=== PATIENT | male | born 1945 | race African-American/Black ===

== ENCOUNTER 2018-12-28 14:46 | Inpatient (IN) | payer MEDICARE ==
[2018-12-28 15:58] LABS: #Eosinphils 0.2 thou/uL (0.0-0.7); #Lymphocytes 1.1 thou/uL (1.20-3.40); #Monocytes 0.5 thou/uL (0.11-0.59); #Neutrophils 2.8 thou/uL (1.40-6.50); %Basophils 0.4 % (0.0-1.0); %Eosinophils 3.4 % (0.0-10.0); %Lymphocytes 23.5 % (21.0-51.0); %Monocytes 10.6 % (0.0-10.0); %Neutrophils 62.2 % (42.0-75.0); Mean Corpuscular HGB CONC 32.9 g/dL (32.0-36.0); Mean Corpuscular Hemoglobin 30.5 pg (27.0-31.0); Mean Corpuscular Volume 92.6 fL (78.0-98.0); Mean Platelet Volume 8.7 fL (7.4-10.4); Platelet Count 141 thou/uL (130-400); RBC Distribution Width 14.3 % (11.5-14.5); Red Blood Cell (RBC) Count 4.59 mill/uL (4.70-6.10); White Blood Cell (WBC) Count 4.6 thou/uL (4.8-10.8)
[2018-12-28 16:19] LABS: ALT (SGPT) 17 U/L (8-55); AST (SGOT) 21 U/L (5-34); Albumin 3.6 g/dL (3.4-4.8); Alkaline Phosphatase 87 U/L (40-150); Anion Gap 10 mmol/L (10-20); BUN (Urea Nitrogen) 17 mg/dL (8.4-25.7); Calc. Creatinine Clearance 0 mL/min (70-130); Calcium 8.8 mg/dL (7.8-10.44); Carbon Dioxide 27 mmol/L (23-31); Chloride 108 mmol/L (98-107); Estimated GFR-MDRD 46; Globulin 2.6 g/dL (2.4-3.5); Glucose 99 mg/dL (83-110); Potassium 4.1 mmol/L (3.5-5.1); Protein, Total 6.2 g/dL (5.8-8.1); Sodium 141 mmol/L (136-145)
[2018-12-28 20:54] LABS: Troponin I 0.118 ng/mL (< 0.028)
[2018-12-28] MEDS ORDERED: Warfarin Sodium 2.5 MG TAB PO SCH (21:00)
[2018-12-28] MEDS: Atorvastatin Calcium 20 MG TAB PO SCH (21:30)
[2018-12-28] MEDS: hydrALAZINE 25 MG TAB PO SCH (21:30)
[2018-12-28 21:56] VITALS: BMI 23.4
--- NOTE | 2018-12-29 01:56 | HP ---
CHIEF COMPLAINT: Shortness of breath. HISTORY OF PRESENT ILLNESS: This patient is a 73-year-old male who originally presented to the emergency department in [place] with shortness of breath and dyspnea on exertion. The patient reports that he has a chronic cough for years. It is generally productive of some non-discolored sputum, but over the last couple of weeks he has had increasing worsening dyspnea on exertion and some fullness in his chest. He has chronic lower extremity edema which is also become worse of late. He denies any specific chest pains. He does follow with Dr. Choudhary. Dr. Choudhary does do echocardiograms on him and told him that everything was okay. He tried to call his office on Wednesday, was unable to reach him by today, so he presented to the emergency department. In the emergency department in [place], the patient was felt to be in some degree of heart failure and was given Lasix 20 mg IV as well as topical nitroglycerin. The patient does not feel like he has voided substantially more than he typically does, but he is feeling better at present. PAST MEDICAL HISTORY: Notable for prosthetic aortic and mitral valves replaced in 2000 and he has done well since then, been quite stable. He has hyperlipidemia , and some degree of congestive heart failure. FAMILY HISTORY: Mother had coronary disease in her 80s. SOCIAL HISTORY: The patient is . Nonsmoker, nondrinker, nondrug user. CURRENT MEDICATIONS: 1. Atorvastatin 20 mg at bedtime. 2. Coreg 3.125 b.i.d. 3. Isosorbide 30 mg daily. 4. Hydralazine 25 b.i.d. 5. Dipyridamole 50 mg daily. 6. Warfarin 7.5 mg daily. ALLERGIES: SULFA. PHYSICAL EXAMINATION: VITAL SIGNS: Temperature 97, respirations 20, O2 saturation 95% on room air, BP 182/91. GENERAL APPEARANCE: Age-appropriate male, in no distress. He is awake, alert, oriented, pleasant, and cooperative. HEENT: Arcus senilis. No acute lesions. NECK: Supple and symmetric. HEART: Regular rate and rhythm. LUNGS: Clear to auscultation bilaterally with good chest wall expansion and air exchange. ABDOMEN: Soft, nontender, and nondistended. Positive bowel sounds. No masses. No organomegaly. EXTREMITIES: Have 2+ pitting edema both lower extremities in mid calf down and feet. SKIN: Vitiligo. No other acute lesions. NEUROLOGICAL: Intact with no focal deficits. LABORATORY DATA: White count 4.6, hemoglobin 14.0, platelets 141. Sodium 141, potassium 4.1, chloride 108, CO2 of 27, BUN 17, creatinine 1.79, glucose 99. AST 21, ALT 17. Troponin 0.103 and 0.103. BNP 1282. Albumin 3.6. Chest x-ray shows stable cardiomegaly with mild vascular congestion. IMPRESSION AND PLAN: 1. Decompensated systolic congestive heart failure. The patient's true cardiac status is not fully known other than he has a prosthetic valves, may have the diastolic component as well. We will attempt to get records from Dr. Choudhary's office first thing in the morning. In the meantime, continue with diuresis, beta blockers, nitrates. 2. Prosthetic valve. Continue with the beta ana and the warfarin. Job ID: [id number] MTDD
[2018-12-29] MEDS: Furosemide 40 MG/4 ML VIAL SLOW IVP SCH ×2 (03:48→13:35)
[2018-12-29] MEDS ORDERED: Nitroglycerin 2% Ointment 1 INCH/1 GM Packet TOP SCH (04:00)
[2018-12-29 05:49] LABS: Anion Gap 14 mmol/L (10-20); BUN (Urea Nitrogen) 16 mg/dL (8.4-25.7); Calc. Creatinine Clearance 45 mL/min (70-130); Carbon Dioxide 21 mmol/L (23-31); Chloride 106 mmol/L (98-107); Estimated GFR-MDRD 55; Glucose 83 mg/dL (83-110); Potassium 3.8 mmol/L (3.5-5.1); Sodium 137 mmol/L (136-145)
[2018-12-29] MEDS: Carvedilol 3.125 MG TAB PO SCH ×2 (09:20→16:25)
[2018-12-29] MEDS: hydrALAZINE 25 MG TAB PO SCH ×2 (09:20→20:37)
[2018-12-29] MEDS ORDERED: Spironolactone 25 MG TAB PO SCH (11:30)
[2018-12-29] MEDS: Nitroglycerin 2% Ointment 1 INCH/1 GM Packet TOP SCH ×2 (13:36→22:05)
[2018-12-29] MEDS ORDERED: Warfarin Sodium 3.75 MG HALF.TAB PO SCH (17:00)
[2018-12-29] MEDS: Atorvastatin Calcium 20 MG TAB PO SCH (20:37)
[2018-12-29] MEDS: Sacubitril 24.5 MG/Valsartan 25.5 MG TABLET PO SCH (20:37)
--- NOTE | 2018-12-30 01:18 | PRG ---
DATE OF SERVICE: 12/29/2018 This is Tati Vines PA-C dictating a report for AUBREY PINO. SUBJECTIVE: Mr. 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 The patient has been admitted with acute CHF exacerbation. He states this morning that he continues to feel fairly short of breath, however, does state that his edema is improving. He remains orthopneic. He denies any chest pain at this time. He denies any nausea, vomiting, chills or fevers. OBJECTIVE: VITAL SIGNS: Blood pressure 124/70, pulse is 75, O2 saturation is 97% on room air, and respirations are 20. GENERAL: The patient is a thin male, resting in bed, in no acute distress, conversing easily. HEENT: Head is atraumatic and normocephalic. Mucous membranes are moist. NECK: Supple. No lymphadenopathy. No obvious JVD. CV: S1, S2, positive mechanical click, regular rate and rhythm. LUNGS: Regular respiratory rate and pattern. The patient has poor vesicular breath sounds throughout and positive crackles at both bases. ABDOMEN: Positive bowel sounds. Soft, nontender. EXTREMITIES: +2 edema bilaterally. SKIN: Warm and dry. No rashes. NEUROLOGIC: Cranial nerves 2 through 12 intact. The patient is nonfocal. LABORATORY DATA: White blood cell count 4.6, hemoglobin 14.0, hematocrit 42.5, and platelets are 141. Sodium 137, potassium 3.8, BUN 16, creatinine 1.53. AST, ALT, and alkaline phosphatase are all within normal limits. BNP was 1200 on arrival. ASSESSMENT: 1. Acute on chronic systolic congestive heart failure exacerbation. 2. Valvular cardiomyopathy with last estimated ejection fraction of 40-45% per echo performed August of 2018. 3. Status post mechanical aortic and mitral valve replacements, on chronic anticoagulation with Coumadin. 4. Paroxysmal atrial fibrillation. 5. The patient with cardiac pacemaker. 6. Acute on chronic renal insufficiency, improving. 7. Hypertension. 8. Hyperlipidemia. 9. History of tobacco abuse and chronic obstructive pulmonary disease. PLAN: At this point, we will restart the patient's home dose of Entresto. We will continue IV diuresis and I will add spironolactone 25 mg daily. We will recheck an INR in the morning, and follow his electrolytes and renal function closely. The patient does need additional IV diuresis, he remains dyspneic and edematous at this time. The care of this patient has been discussed with Dr. Pino who agrees with the above. Job ID: [id number]
[2018-12-30 05:22] LABS: INR-International Normal Ratio 1.8; Prothrombin Time 21.1 SEC (12.0-14.7)
[2018-12-30 05:59] LABS: Anion Gap 13 mmol/L (10-20); BUN (Urea Nitrogen) 17 mg/dL (8.4-25.7); Calc. Creatinine Clearance 38 mL/min (70-130); Calcium 8.9 mg/dL (7.8-10.44); Carbon Dioxide 22 mmol/L (23-31); Chloride 106 mmol/L (98-107); Estimated GFR-MDRD 48; Glucose 90 mg/dL (83-110); Potassium 4.1 mmol/L (3.5-5.1); Sodium 137 mmol/L (136-145)
[2018-12-30] MEDS: Furosemide 40 MG/4 ML VIAL SLOW IVP SCH ×2 (06:30→14:02)
[2018-12-30] MEDS: Carvedilol 3.125 MG TAB PO SCH (06:54)
[2018-12-30] MEDS: Sacubitril 24.5 MG/Valsartan 25.5 MG TABLET PO SCH ×2 (09:51→20:20)
[2018-12-30] MEDS: hydrALAZINE 25 MG TAB PO SCH ×2 (09:51→20:20)
[2018-12-30] MEDS: Spironolactone 25 MG TAB PO SCH (09:51)
[2018-12-30] MEDS: Enoxaparin Sodium 60 MG/0.6 ML SYRINGE SC SCH ×2 (09:52→20:21)
[2018-12-30] MEDS ORDERED: Carvedilol 3.125 MG TAB PO SCH (11:30)
--- NOTE | 2018-12-30 14:43 | PRG ---
DATE OF SERVICE: 12/30/2018 SUBJECTIVE: Mr. Beckett is a very pleasant male with past medical history significant for valvular cardiomyopathy, status post both mechanical aortic and mitral valve replacements, paroxysmal atrial fibrillation, and chronic kidney disease, who presented to the hospital with a 2-week history of worsening shortness of breath and edema. The patient has been admitted with acute on chronic CHF exacerbation. The patient states that his breathing is continuing to improve. He does some have some occasional chest tightness related to his shortness of breath, but this has improved as well. His edema is beginning to improve. Overnight, the patient went from sinus rhythm into sustained atrial fibrillation with some intermittent rapid ventricular rate. He does appear to be asymptomatic from this. OBJECTIVE: VITAL SIGNS: Blood pressure 144/81, pulse 73, O2 saturation is 97% on room air, respirations are 16. The patient is afebrile, 97.5. GENERAL: The patient is a thin male, resting comfortably in bed, eating lunch, in no acute distress. HEENT: Head is atraumatic and normocephalic. Mucous membranes are moist. NECK: Supple. No lymphadenopathy. No obvious JVD. CV: S1 and S2, irregularly irregular. Positive click. LUNGS: Regular respiratory rate and pattern, he does have continued bibasilar crackles, although I do appreciate better air movement throughout. ABDOMEN: Positive bowel sounds. Soft, nontender. EXTREMITIES: 1+ edema bilaterally. NEUROLOGIC: Cranial nerves 2 through 12 are grossly intact. Nonfocal. LABORATORY DATA: PT 21.1, INR 1.8. Sodium 137, potassium 4.1, chloride 106, anion gap 13, creatinine 1.72, GFR 48, glucose 90, magnesium 1.7. ASSESSMENT: 1. Acute on chronic systolic congestive heart failure exacerbation, improving. 2. History of paroxysmal atrial fibrillation, now sustained, rate is currently controlled, CHADS-VASc 5, valvular cardiomyopathy with last ejection fraction estimated at 40% to 45%, which was August 2018. 3. Status post mechanical aortic and mitral valve replacements, on chronic anticoagulation with Coumadin, goal INR 2.5-3.5 4. The patient with dual chamber [employer] pacemaker. 5. Acute on chronic renal insufficiency, stable. 6. Hypertension. 7. Hyperlipidemia. 8. History of tobacco abuse and COPD. PLAN: We will titrate up the patient's carvedilol to 6.25 mg b.i.d. We will cover his subtherapeutic INR with Lovenox. Appropriate dosing has been discussed with Pharmacy and we will initiate therapy with 70 mg subcu b.i.d. We will continue IV diuresis and obtain 2D echocardiogram. Given the patient's flip into sustained atrial fibrillation along with his continued requirement for IV diuresis and his multiple comorbidities, he does meet inpatient criteria at this time. The care of this patient has been discussed in detail with Dr. Calloway, who agrees with the above. Job ID: [id number] MTDD
[2018-12-30] MEDS ORDERED: Warfarin Sodium 2.5 MG TAB PO SCH ×2 (17:00)
[2018-12-30] MEDS: Warfarin Sodium 7.5 MG TAB PO SCH ×2 (17:04→17:12)
[2018-12-30] MEDS: Carvedilol 6.25 MG TAB PO SCH (17:04)
[2018-12-30] MEDS: Warfarin Sodium 5 MG TAB PO SCH (17:17)
[2018-12-30] MEDS: Atorvastatin Calcium 20 MG TAB PO SCH (20:20)
[2018-12-31 04:56] LABS: INR-International Normal Ratio 1.9; Prothrombin Time 21.5 SEC (12.0-14.7)
[2018-12-31] MEDS: Furosemide 40 MG/4 ML VIAL SLOW IVP SCH ×2 (05:42→13:27)
[2018-12-31] MEDS: Spironolactone 25 MG TAB PO SCH (07:41)
[2018-12-31] MEDS: Carvedilol 6.25 MG TAB PO SCH ×2 (07:41→16:03)
[2018-12-31] MEDS: Sacubitril 24.5 MG/Valsartan 25.5 MG TABLET PO SCH ×2 (08:23→20:54)
[2018-12-31] MEDS: hydrALAZINE 25 MG TAB PO SCH ×2 (08:23→20:55)
[2018-12-31] MEDS: Enoxaparin Sodium 60 MG/0.6 ML SYRINGE SC SCH (08:24)
[2018-12-31] MEDS ORDERED: Diabetic Tussin 200 MG/10 ML UDCUP PO PRN (08:55)
--- NOTE | 2018-12-31 13:35 | EKG ---
Test Reason : STAT Blood Pressure : / mmHG Vent. Rate : 077 BPM Atrial Rate : 375 BPM P-R Int : 000 ms QRS Dur : 160 ms QT Int : 424 ms P-R-T Axes : 000 -29 105 degrees QTc Int : 479 ms Demand pacemaker; interpretation is based on intrinsic rhythm Atrial fibrillation with premature ventricular or aberrantly conducted complexes Left bundle branch block Abnormal ECG When compared with ECG of 28-DEC-2018 14:55, (Unconfirmed) Atrial fibrillation has replaced Sinus rhythm Confirmed by DR. Misty NEAL ([id number]) on 12/31/2018 1:35:21 PM Referred By: MARE Confirmed By:DR. Misty NEAL
--- NOTE | 2018-12-31 13:53 | EKG ---
Test Reason : Blood Pressure : / mmHG Vent. Rate : 086 BPM Atrial Rate : 153 BPM P-R Int : 000 ms QRS Dur : 152 ms QT Int : 422 ms P-R-T Axes : 000 035 129 degrees QTc Int : 504 ms Atrial fibrillation Left bundle branch block Abnormal ECG Confirmed by DR. Misty NEAL ([id number]) on 12/31/2018 1:52:44 PM Referred By: MARE Confirmed By:DR. Misty NEAL
--- NOTE | 2018-12-31 14:51 | PDOC.PN ---
- Subjective Encounter Start Date: 12/31/18 Encounter Start Time: 08:30 Patient seen and examined for CHF. SOB improving. No CP. No new complaints. No overnight events - Objective MAR Reviewed: Yes Vital Signs & Weight: Vital Signs (12 hours) Temp Pulse Resp BP Pulse Ox 12/31/18 11:34 97.8 F 73 18 137/82 98 12/31/18 07:36 97.6 F 77 18 166/84 H 97 12/31/18 03:05 97.8 F 73 18 162/89 H 98 Weight Weight 153 lb 7.068 oz I&O: 12/30/18 12/31/18 01/01/19 06:59 06:59 06:59 Intake Total 1598 1444 Output Total 2360 2175 Balance -237 -131 Result Diagrams: 12/28/18 15:44 12/30/18 04:45 EKG Reviewed by me: Yes (Tele paced) Phys Exam - Physical Examination Constitutional: NAD Respiratory: no wheezing, no rhonchi Cardiovascular: RRR, no rub Gastrointestinal: soft, non-tender, positive bowel sounds Musculoskeletal: no edema Neurological: moves all 4 limbs Dx/Plan - Plan IMPRESSION: Acute on chronic systolic/diastolic HF Prosthetic Mitral and Aortic valve HTN with HTN heart disease HLD Subtherapeutic INR Par Afib CKD 3 PLAN: DC Lovenox when INR >=2.5 Change Lasix to PO Cont Coreg/Entresto/Aldactone AM labs Cont other meds as below Review of Systems - Review of Systems Respiratory: negative: Cough, Dry, Shortness of Breath, Hemoptysis, SOB with Excertion, Pleuritic Pain, Sputum, Wheezing Cardiovascular: negative: chest pain, palpitations, orthopnea, paroxysmal nocturnal dyspnea, edema, light headedness, other - Medications/Allergies Allergies/Adverse Reactions: Allergies Allergy/AdvReac Type Severity Reaction Status Date / Time Sulfa (Sulfonamide Allergy Verified 12/28/18 22:43 Antibiotics) Medications: Current Medications Atorvastatin Calcium (Lipitor) 20 mg PO HS REPLACED BY [facility] Last Admin: 12/30/18 20:20 Dose: 20 mg Carvedilol (Coreg) 6.25 mg PO BID-[facility] Last Admin: 12/31/18 07:41 Dose: 6.25 mg Enoxaparin Sodium (Lovenox) 70 mg SC 0900,2100 REPLACED BY [facility] Last Admin: 12/31/18 08:24 Dose: 70 mg Furosemide (Lasix) 40 mg SLOW IVP 0600,1400 REPLACED BY [facility] Last Admin: 12/31/18 13:27 Dose: 40 mg Guaifenesin (Robitussin Sf) 200 mg PO Q4H PRN PRN Reason: Cough Hydralazine HCl (Apresoline) 25 mg PO BID REPLACED BY [facility] Last Admin: 12/31/18 08:23 Dose: 25 mg Isosorbide Mononitrate (Imdur Er) 30 mg PO DAILY REPLACED BY [facility] Last Admin: 12/31/18 08:23 Dose: 30 mg Miscellaneous Medication (Pharmacy To Dose) 0 each PO .WARFARIN PRN PRN Reason: LABS Sacubitril/Valsartan (Entresto 24.5 Mg-25.5 Mg Tablet) 1 tab PO BID REPLACED BY [facility] Last Admin: 12/31/18 08:23 Dose: 1 tab Spironolactone (Aldactone) 25 mg PO QAM-WM REPLACED BY [facility] Last Admin: 12/31/18 07:41 Dose: 25 mg Warfarin Sodium (Coumadin) 5 mg PO 1700 REPLACED BY [facility] Last Admin: 12/30/18 17:17 Dose: 5 mg
[2018-12-31] MEDS: Warfarin Sodium 5 MG TAB PO SCH (16:02)
[2018-12-31] MEDS: Enoxaparin Sodium 80 MG/0.8 ML SYRINGE SC SCH (20:55)
[2018-12-31] MEDS: Atorvastatin Calcium 20 MG TAB PO SCH (20:55)
[2019-01-01 05:15] LABS: Hemoglobin 14.4 g/dL (14.0-18.0); Platelet Count 139 thou/uL (130-400)
[2019-01-01 05:30] LABS: Anion Gap 12 mmol/L (10-20); BUN (Urea Nitrogen) 17 mg/dL (8.4-25.7); Calc. Creatinine Clearance 37 mL/min (70-130); Calcium 8.8 mg/dL (7.8-10.44); Carbon Dioxide 24 mmol/L (23-31); Chloride 105 mmol/L (98-107); Estimated GFR-MDRD 45; Glucose 88 mg/dL (83-110); Potassium 4.1 mmol/L (3.5-5.1); Sodium 137 mmol/L (136-145)
[2019-01-01] MEDS: Spironolactone 25 MG TAB PO SCH (08:09)
[2019-01-01] MEDS: Furosemide 40 MG TAB PO SCH (08:09)
[2019-01-01] MEDS: hydrALAZINE 25 MG TAB PO SCH ×2 (08:09→21:57)
[2019-01-01] MEDS: Carvedilol 6.25 MG TAB PO SCH ×2 (08:09→16:19)
[2019-01-01] MEDS: Enoxaparin Sodium 80 MG/0.8 ML SYRINGE SC SCH ×2 (08:09→21:57)
[2019-01-01] MEDS: Sacubitril 24.5 MG/Valsartan 25.5 MG TABLET PO SCH ×2 (08:09→21:58)
--- NOTE | 2019-01-01 13:25 | PDOC.PN ---
- Subjective Encounter Start Date: 01/01/19 Encounter Start Time: 07:00 Pt seen for followup re: CHF exacerbation. Feels better. No complaints. - Objective MAR Reviewed: Yes Vital Signs & Weight: Vital Signs (12 hours) Temp Pulse Resp BP Pulse Ox 01/01/19 11:30 98.2 F 72 18 123/76 97 01/01/19 08:07 98.1 F 72 18 120/79 98 01/01/19 04:00 97.5 F L 85 15 159/95 H 99 Weight Weight 151 lb 10.848 oz I&O: 12/31/18 01/01/19 01/02/19 06:59 06:59 06:59 Intake Total 1444 0 Output Total 2175 1730 Balance -731 -7381 Result Diagrams: 01/01/19 04:13 01/01/19 04:13 EKG Reviewed by me: Yes (Tele: runs of NSVT) Phys Exam - Physical Examination Constitutional: NAD HEENT: moist MMs Neck: supple Respiratory: clear to auscultation bilateral Cardiovascular: RRR Gastrointestinal: soft Neurological: moves all 4 limbs Psychiatric: normal affect Deviation from normal: vitiligo dorsum left hand Dx/Plan (1) Acute on chronic combined systolic and diastolic CHF, NYHA class 3 Code(s): I50.43 - ACUTE ON CHRONIC COMBINED SYSTOLIC AND DIASTOLIC HRT FAIL Status: Acute Comment: Improving, continue diuretics (2) H/O prosthetic heart valve Status: Chronic Comment: INR subtherapeutic, target INR 2.5-3.5. Continue warfarin with Lovenox bridge. (3) HTN (hypertension) Code(s): I10 - ESSENTIAL (PRIMARY) HYPERTENSION Status: Chronic Comment: controlled (4) Dyslipidemia Code(s): E78.5 - HYPERLIPIDEMIA, UNSPECIFIED Status: Chronic Comment: continue Lipitor (5) Stage 3 chronic kidney disease Code(s): N18.3 - CHRONIC KIDNEY DISEASE, STAGE 3 (MODERATE) Status: Chronic Comment: stable - Plan * . Review of Systems - Review of Systems Respiratory: negative: Cough, Shortness of Breath, SOB with Excertion, Pleuritic Pain, Wheezing Cardiovascular: negative: chest pain, palpitations, orthopnea, paroxysmal nocturnal dyspnea, edema, light headedness - Medications/Allergies Allergies/Adverse Reactions: Allergies Allergy/AdvReac Type Severity Reaction Status Date / Time Sulfa (Sulfonamide Allergy Verified 12/28/18 22:43 Antibiotics) Medications: Current Medications Atorvastatin Calcium (Lipitor) 20 mg PO HS [facility] Last Admin: 12/31/18 20:55 Dose: 20 mg Carvedilol (Coreg) 6.25 mg PO BID-[facility] Last Admin: 01/01/19 08:09 Dose: 6.25 mg Enoxaparin Sodium (Lovenox) 70 mg SC 0900,2100 [facility] Last Admin: 01/01/19 08:09 Dose: 70 mg Furosemide (Lasix) 40 mg PO DAILY-[facility] Last Admin: 01/01/19 08:09 Dose: 40 mg Guaifenesin (Robitussin Sf) 200 mg PO Q4H PRN PRN Reason: Cough Last Admin: 12/31/18 15:54 Dose: 200 mg Hydralazine HCl (Apresoline) 25 mg PO BID [facility] Last Admin: 01/01/19 08:09 Dose: 25 mg Isosorbide Mononitrate (Imdur Er) 30 mg PO DAILY [facility] Last Admin: 01/01/19 08:09 Dose: 30 mg Miscellaneous Medication (Pharmacy To Dose) 0 each PO .WARFARIN PRN PRN Reason: LABS Sacubitril/Valsartan (Entresto 24.5 Mg-25.5 Mg Tablet) 1 tab PO BID [facility] Last Admin: 01/01/19 08:09 Dose: 1 tab Spironolactone (Aldactone) 25 mg PO QAM-[facility] Last Admin: 01/01/19 08:09 Dose: 25 mg Warfarin Sodium (Coumadin) 5 mg PO 1700 [facility] Last Admin: 12/31/18 16:02 Dose: 5 mg
[2019-01-01] MEDS ORDERED: Warfarin Sodium 3 MG TAB PO SCH (17:00)
--- NOTE | 2019-01-01 18:11 | CON ---
DATE OF CONSULTATION: 01/01/2019 PRIMARY GEOGRAPHICAL HISTORIAN: Dr. Popeye Choudhary. REASON FOR CONSULTATION: Atrial arrhythmias in the setting of congestive heart failure. HISTORY OF PRESENT ILLNESS: Mr. Beckett is a delightful 73-year-old man. He was admitted to the hospital with congestive heart failure on this occasion, which is diastolic. During this hospitalization, he has had atrial fibrillation and also what appears to be some atrial tachycardia with a rapid ventricular response. Heart failure is improved, but the atrial arrhythmias have not and the rate is very rapid at times. Previous aortic and mitral valves replacement by mechanical valves. Previous pacemaker insertion. CURRENT MEDICATION: He is on; 1. Entresto. 2. Coreg. 3. Hydralazine. 4. Spironolactone. 5. Coumadin. ALLERGIES: TO SULFA. REVIEW OF SYSTEMS: CONSTITUTIONAL: No significant weight gain or loss. Vision: No changes. HEARING: No changes. PULMONARY: No cough or wheezing. GASTROINTESTINAL: No nausea, vomiting, or diarrhea. SKIN: No rashes. NEUROLOGIC: No unilateral weakness or numbness. PSYCHIATRIC: No unusual depression or anxiety. HEMATOLOGIC: No unusual bruising. GENITOURINARY: No burning with urination. PHYSICAL EXAMINATION: GENERAL: This is a pleasant gentleman, in no distress blood pressure 137/76, pulse 70s, it is irregular. NECK: Neck veins are normal. LUNGS: Showed some rhonchi. CARDIAC: It is irregular. There are crisp prosthetic valve sounds. ABDOMEN: Soft and nontender. EXTREMITIES: Warm and dry. No clubbing or cyanosis. There is no edema. PERTINENT LABORATORY DATA: Creatinine is 1.82. Troponin 0.188. BNP is 1282. Echocardiogram revealed mildly depressed left ventricular function, ejection fraction 40% to 45%, moderate to severe concentric left ventricular hypertrophy, and normally functioning mechanical and aortic valve prosthesis. ASSESSMENT: 1. Congestive heart failure, systolic diastolic mixed. 2. Atrial arrhythmias with frequent atrial fibrillation and somewhat appears to be atrial tachycardia with rapid conduction rate of 150. 3. Previous valve replacement. PLAN: 1. Really, the only antiarrhythmic that could be used at this point would be amiodarone. 2. We will consult electrophysiology at some point, consideration for ablation. If he does have some rhonchi, may not be a great candidate for long-term amiodarone. Job ID: [id number]
[2019-01-01] MEDS: Amiodarone 200 MG TAB PO SCH (21:58)
[2019-01-01] MEDS: Atorvastatin Calcium 20 MG TAB PO SCH (21:58)
[2019-01-02 04:57] LABS: INR-International Normal Ratio 2.8; Prothrombin Time 29.5 SEC (12.0-14.7)
[2019-01-02] MEDS: Furosemide 40 MG TAB PO SCH (06:30)
[2019-01-02] MEDS ORDERED: Sodium Chloride 0.9% 10 ML ONE (08:06)
[2019-01-02] MEDS: Spironolactone 25 MG TAB PO SCH (08:45)
[2019-01-02] MEDS: Carvedilol 6.25 MG TAB PO SCH ×2 (08:45→16:26)
[2019-01-02] MEDS: Amiodarone 200 MG TAB PO SCH ×2 (08:46→19:59)
[2019-01-02] MEDS: hydrALAZINE 25 MG TAB PO SCH ×2 (08:46→20:00)
[2019-01-02] MEDS: Sacubitril 24.5 MG/Valsartan 25.5 MG TABLET PO SCH ×2 (08:46→20:00)
--- NOTE | 2019-01-02 13:34 | PDOC.PN ---
- Subjective Encounter Start Date: 01/02/19 Encounter Start Time: 07:00 Pt seen for followup re: acute on chronic combined HF exacerbation. feels well. - Objective MAR Reviewed: Yes Vital Signs & Weight: Vital Signs (12 hours) Temp Pulse Resp BP Pulse Ox 01/02/19 11:29 97.7 F 70 18 107/69 97 01/02/19 07:19 97.7 F 70 18 134/72 99 01/02/19 03:00 98.3 F 72 18 114/73 98 Weight Weight 140 lb 14.4 oz I&O: 01/01/19 01/02/19 01/03/19 06:59 06:59 06:59 Intake Total 0 1100 Output Total 1730 1140 Balance -1730 -40 Result Diagrams: 01/03/19 04:00 01/01/19 04:13 EKG Reviewed by me: Yes (Tele: freddy lawrence) Phys Exam - Physical Examination Constitutional: NAD HEENT: moist MMs Neck: supple Respiratory: clear to auscultation bilateral Cardiovascular: RRR Gastrointestinal: soft Neurological: moves all 4 limbs Psychiatric: normal affect Dx/Plan (1) Acute on chronic combined systolic and diastolic CHF, NYHA class 3 Code(s): I50.43 - ACUTE ON CHRONIC COMBINED SYSTOLIC AND DIASTOLIC HRT FAIL Status: Acute Comment: Improving (2) H/O prosthetic heart valve Status: Chronic Comment: INR therapeutic, discontinue Lovenox (3) HTN (hypertension) Code(s): I10 - ESSENTIAL (PRIMARY) HYPERTENSION Status: Chronic Comment: controlled (4) Dyslipidemia Code(s): E78.5 - HYPERLIPIDEMIA, UNSPECIFIED Status: Chronic Comment: continue Lipitor (5) Stage 3 chronic kidney disease Code(s): N18.3 - CHRONIC KIDNEY DISEASE, STAGE 3 (MODERATE) Status: Chronic Comment: stable - Plan * . await EP consult for atrial tachyarrhythmias Review of Systems - Review of Systems Respiratory: negative: Cough, Shortness of Breath, SOB with Excertion, Pleuritic Pain, Wheezing Cardiovascular: negative: chest pain, palpitations, orthopnea, paroxysmal nocturnal dyspnea, edema, light headedness - Medications/Allergies Allergies/Adverse Reactions: Allergies Allergy/AdvReac Type Severity Reaction Status Date / Time Sulfa (Sulfonamide Allergy Verified 12/28/18 22:43 Antibiotics) Medications: Current Medications Amiodarone HCl (Cordarone) 400 mg PO BID [facility] Last Admin: 01/02/19 08:46 Dose: 400 mg Atorvastatin Calcium (Lipitor) 20 mg PO HS [facility] Last Admin: 01/01/19 21:58 Dose: 20 mg Carvedilol (Coreg) 6.25 mg PO BID-[facility] Last Admin: 01/02/19 08:45 Dose: 6.25 mg Furosemide (Lasix) 40 mg PO DAILY-[facility] Last Admin: 01/02/19 06:30 Dose: 40 mg Guaifenesin (Robitussin Sf) 200 mg PO Q4H PRN PRN Reason: Cough Last Admin: 12/31/18 15:54 Dose: 200 mg Hydralazine HCl (Apresoline) 25 mg PO BID [facility] Last Admin: 01/02/19 08:46 Dose: 25 mg Isosorbide Mononitrate (Imdur Er) 30 mg PO DAILY [facility] Last Admin: 01/02/19 08:46 Dose: 30 mg Miscellaneous Medication (Pharmacy To Dose) 0 each PO .WARFARIN PRN PRN Reason: LABS Sacubitril/Valsartan (Entresto 24.5 Mg-25.5 Mg Tablet) 1 tab PO BID [facility] Last Admin: 01/02/19 08:46 Dose: 1 tab Spironolactone (Aldactone) 25 mg PO QAM-[facility] Last Admin: 01/02/19 08:45 Dose: 25 mg Warfarin Sodium (Coumadin) 5 mg PO 1700 [facility]
[2019-01-02] MEDS: Warfarin Sodium 5 MG TAB PO SCH (16:26)
[2019-01-02] MEDS: Atorvastatin Calcium 20 MG TAB PO SCH (20:00)
[2019-01-03 04:53] LABS: INR-International Normal Ratio 2.8; Platelet Count 146 thou/uL (130-400); Prothrombin Time 29.9 SEC (12.0-14.7)
[2019-01-03] MEDS ORDERED: Sodium Chloride 0.9% 10 ML ONE (08:33)
[2019-01-03] MEDS: Amiodarone 200 MG TAB PO SCH (09:30)
[2019-01-03] MEDS: Carvedilol 6.25 MG TAB PO SCH ×2 (09:31→16:34)
[2019-01-03] MEDS: Furosemide 40 MG TAB PO SCH (09:32)
[2019-01-03] MEDS: hydrALAZINE 25 MG TAB PO SCH (09:32)
--- NOTE | 2019-01-03 09:33 | PRG ---
DATE OF SERVICE: 01/03/2019 SUBJECTIVE: Mr. Beckett is doing much better, feels better. He is not having the tachycardia now. OBJECTIVE: VITAL SIGNS: Blood pressure 140/80, pulse 68 and regular. LUNGS: Clear. CARDIAC: Now normal S1 and normal S2. ASSESSMENT: 1. Paroxysmal atrial flutter with a now rate controlled atrial fibrillation. 2. Previous pacemaker. 3. Previous aortic and mitral valve replacements. PLAN: 1. Okay with me to go home on amiodarone 200 mg twice a day. 2. He needs to see Dr. Choudhary in a week. 3. Consideration for outpatient ablation. 4. He is on Coumadin. Job ID: [id number]
[2019-01-03] MEDS: Sacubitril 24.5 MG/Valsartan 25.5 MG TABLET PO SCH (09:35)
[2019-01-03] MEDS: Spironolactone 25 MG TAB PO SCH (09:42)
[2019-01-03] MEDS: Warfarin Sodium 5 MG TAB PO SCH (16:34)
[2019-01-03 16:36] VITALS: BP 120/73
--- NOTE | 2019-01-03 16:39 | DIS ---
DATE OF ADMISSION: 12/30/2018 DATE OF DISCHARGE: 01/03/2019 DISCHARGE DISPOSITION: Home. FOLLOWUP: 1. Follow up with primary care physician at [facility]. 2. Follow up with Cardiology, Dr. Choudhary, next week as scheduled. 3. Follow up with Electrophysiology, Dr. Vasquez in 1 to 2 weeks. 4. Outpatient cardiac rehabilitation. ALLERGIES: SULFA. THE PATIENT WAS SEEN AND EXAMINED ON THE DAY OF DISCHARGE. DENIES ANY NEW COMPLAINTS. NO CHEST PAIN, SHORTNESS OF BREATH, OR PALPITATIONS REPORTED. BRIEF HOSPITAL COURSE: The patient is a 73-year-old male with congestive heart failure, prosthetic aortic and mitral valve, presented to the hospital with shortness of breath. His workup was consistent with acute on chronic systolic and diastolic heart failure exacerbation. Echocardiogram showed ejection fraction of 40% to 45% with moderate to severe concentric left ventricular hypertrophy with severely elevated pulmonary artery pressure. He showed good improvement with diuretics. His weight on the day of discharge is 145 pounds from 163 pounds. He was extensively counseled on fluid restriction. He will continue diuretics on an as needed basis at home. The patient was also found to have subtherapeutic INR at 1.8. He was started on Lovenox, and warfarin dose has been increased. He was advised to continue warfarin at 3.75 mg everyday. He will need a repeat INR check later this week. The patient was evaluated by Cardiology 2 days ago due to atrial arrhythmia with frequent atrial fibrillation with rapid ventricular response. He has been started on amiodarone by Dr. Quach. He was advised to follow up with Electrophysiology as well as Dr. Choudhary as outpatient. He may not be a good candidate for long-term amiodarone. He has been given a prescription for next 2 weeks of amiodarone. DISCHARGE MEDICATIONS: 1. Entresto one tablet b.i.d. 2. Coumadin 3.75 mg daily. 3. Amiodarone 200 mg b.i.d. for next 2 weeks, Dr. Choudhary to provide refills if needed. 4. Carvedilol 6.25 mg b.i.d. 5. Lasix 40 mg daily as needed for edema. 6. Hydralazine 25 mg b.i.d. 7. Isosorbide mononitrate 30 mg daily. 8. Dipyridamole 50 mg daily. 9. Lipitor 20 mg daily. TIME SPENT WITH PATIENT: Total time coordinating the discharge of this patient was 35 minutes. FINAL DIAGNOSES: 1. Acute on chronic systolic and diastolic heart failure exacerbation. 2. Prosthetic mitral and aortic valve with subtherapeutic INR. 3. Hypertension with hypertensive heart disease. 4. Pulmonary hypertension. 5. Hyperlipidemia. 6. Subtherapeutic INR. 7. Paroxysmal atrial fibrillation with intermittent rapid ventricular response, started on amiodarone by Cardiology. 8. Chronic kidney disease, stage 3. 9. Type 2 myocardial infarction secondary to demand ischemia. 10. History of pacemaker placement. Total time coordinating the discharge of this patient was 35 minutes. Job ID: [id number]
[2019-01-03 17:02] VITALS: TEMP 96
--- NOTE | 2019-01-05 12:01 | CON ---
DATE OF CONSULTATION: 01/03/2019 REASON FOR CONSULTATION: I am seeing Mr. 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 His problems are: 1. Recurrent atrial arrhythmias. a. Atypical atrial flutter with a varying cycle lengths occasionally with 1:1 AV conduction noted on ICD interrogation sustaining since November on amiodarone taper. 2. Acute on chronic systolic heart failure exacerbation. a. Prior history of LVEF 40% to 45%. A stress on the echo from 12/30/2018, mechanical mitral valve prosthesis with normal function, mechanical aortic valve prosthesis, peak gradient 30 mmHg, [id number] tricuspid regurgitation, severe elevated pulmonary pressures. 3. Left bundle-branch block. 4. History of dual-chamber ICD implant from October 07, 2015. 5. Remote history of atrial flutter ablation by Dr. Peck in the past, in September 2015. 6. History of chronic anticoagulation with Coumadin. 7. History of hypertension. ALLERGIES: SULFA. MEDICATIONS: Prior to admission include; 1. Warfarin as directed. 2. Isosorbide mononitrate. 3. Carvedilol 3.125 mg twice a day. 4. Lipitor. 5. Hydralazine 25 mg twice a day. 6. Dipyridamole and valsartan, sacubitril/Entresto 24/26 mg twice a day. SUBJECTIVE: Mr. Beckett is here with progressive dyspnea and signs of fluid overload, admitted on . He has been diuresed since and is also noted to have atrial flutter with rapid rates. His workup revealed [id number] reduced LVEF as above, but also significant atrial arrhythmia burden was documented by his ICD interrogation. Yet, he does not pass out. Now with diuresis, he is feeling somewhat better. There is no PND, orthopnea, or lower extremity edema noted. No fever, chills, or cough. Rest of 12-point system otherwise unremarkable. OBJECTIVE: VITAL SIGNS: Blood pressure 140/80, heart rate 68, respirations 18, and temperature 96.1 degrees Fahrenheit. GENERAL: Alert and oriented man, in no apparent distress. NECK: Supple. Jugular vein is not distended. CHEST: Coarse without crackles. HEART: Heart sounds are regular to rate and rhythm. heart sounds are heard. The left precordial ICD insertion site is well healed. ABDOMEN: Benign. Bowel sounds positive. Extremities: Lower extremities without edema, clubbing, or cyanosis. Pulses are adequate. NEUROLOGIC: The patient is nonfocal. MUSCULOSKELETAL: Without joint swelling or deformity. SKIN: Without rash. DATABASE: The EKG is reviewed revealing atrial flutter with left bundle-branch block. Subsequent EKGs reveal 2:1 conducted atrial flutters and occasional 1:1 chronic atrial flutter was also noted. More recently, the patient is in sinus rhythm. There is persisting left bundle-branch block. LABORATORY DATA: White cell count is 4.6, hemoglobin 14, and platelet count is 141. Sodium 137, potassium 4.1, BUN is 17, and creatinine is 1.82. Troponin I is 0.118. The ICD interrogation revealed a [employer] dual-chamber ICD. The longevity is 8.7 years. Lead parameters are adequate. The patient has 40% [place] burden. Most episodes seem to be fairly irregular, atrial flutter or tachycardia, some with cycle length 220 milliseconds. The other ones are more rapid at 180 milliseconds are seen. ASSESSMENT AND PLAN: Mr. Beckett is a pleasant 73-year-old man with prior history of mechanical aortic and mitral valve replacement, who has had remote history of atrial flutter ablation, more recently has developed progressive heart failure symptoms. Also has significant atrial arrhythmia burden. He required amiodarone for suppression, which seems to be having more frequent episodes of normal rhythm on a low-dose p.o. amiodarone taper. I discussed these issues with him, also the role of atrial arrhythmias in development of heart failure and the heart failure provoking atrial arrhythmias as well. I detailed the necessity to cycle and I agree with the initiated amiodarone use, although long-term he may benefit from an effort for ablation. Complicating issues, he is presented for mechanical mitral valve, which may make the procedure elevate risk in the left atrium. Also, we will make arrangements for this ablation as an outpatient at [facility] as complex ablation is likely required. 1. The patient has left bundle-branch block, but only [id number] reduced LVEF if hardware symptoms persist. LV lead upgrade could be strongly contemplated. If atrial arrhythmias continue, AV bert ablation is a better option in that way in the future. 2. ICD function needs to be otherwise adequate. Continue monitoring. 3. We will have to see this patient back in the office and he will follow up with Dr. Choudhary as already planned. Job ID: [id number]
== END 2019-01-03 17:00 | disposition home or self-care (01) | DRG 280 ==
LOC: ERS 14:46 → 2SW 19:00 → OBSVTOIN 12-30 13:47 → 2NO 12-30 18:25
PROVIDERS: ADMIT Internal Medicine; ATTEND Internal Medicine
DX: I13.0 Hypertensive heart and chronic kidney disease with heart failure and stage 1 through stage 4 chronic kidney disease, or unspecified chronic kidney disease (principal); I50.43 Acute on chronic combined systolic (congestive) and diastolic (congestive) heart failure; I21.A1 Myocardial infarction type 2; N17.9 Acute kidney failure, unspecified; E78.5 Hyperlipidemia, unspecified; I42.8 Other cardiomyopathies; I48.0 Paroxysmal atrial fibrillation; I27.20 Pulmonary hypertension, unspecified; N18.3 Chronic kidney disease, stage 3 (moderate); F17.210 Nicotine dependence, cigarettes, uncomplicated; J44.9 Chronic obstructive pulmonary disease, unspecified; Z79.01 Long term (current) use of anticoagulants; Z79.899 Other long term (current) drug therapy; Z95.2 Presence of prosthetic heart valve; Z88.2 Allergy status to sulfonamides; Z95.0 Presence of cardiac pacemaker
CPT/HCPCS: 36415; 80048; 82553; 83735; 83880; 85014; 85018; 85049; 85610; 93005; 93010; 93306; 93798; J1650; J1940

== ENCOUNTER 2020-08-11 12:09 | Inpatient (IN) | payer MEDICARE ==
[2020-08-11 12:43] LABS: Bilirubin Negative (Negative); Blood, Urine Negative (Negative); Clarity Clear (Clear); Glucose, Urine (Dipstick) Normal (Negative); Ketone, Urine Negative (Negative); Leukocyte Negative Leu/uL (Negative); Nitrite Negative (Negative); Protein, Urine (Dipstick) 10 mg/dL (Neg-Trace); Specific Gravity, Urine 1.015 (1.002-1.036); Urobilinogen Normal mg/dL (Less than 2); pH, Urine 5.5 (5.0-9.0)
[2020-08-11 14:54] LABS: #Eosinphils 0.1 thou/uL (0.0-0.7); #Lymphocytes 1.1 thou/uL (1.20-3.40); #Monocytes 0.9 thou/uL (0.11-0.59); #Neutrophils 4.5 thou/uL (1.40-6.50); %Basophils 0.4 % (0.0-1.0); %Eosinophils 1.9 % (0.0-10.0); %Lymphocytes 16.3 % (21.0-51.0); %Neutrophils 68.4 % (42.0-75.0); Hemoglobin 7.7 g/dL (14.0-18.0); Mean Corpuscular Hemoglobin 32.9 pg (27.0-31.0); Mean Corpuscular Volume 94.1 fL (78.0-98.0); Mean Platelet Volume 5.3 fL (7.4-10.4); Platelet Count 131 thou/uL (130-400); RBC Distribution Width 15.6 % (11.5-14.5); Red Blood Cell (RBC) Count 2.34 mill/uL (4.70-6.10); White Blood Cell (WBC) Count 6.6 thou/uL (4.8-10.8)
[2020-08-11 14:57] LABS: INR-International Normal Ratio 3.6; PTT 53.6 sec (22.9-36.1); Prothrombin Time 36.3 sec (12.0-14.7)
[2020-08-11] MEDS ORDERED: Acetaminophen 325 MG TAB PO PRN (14:57)
[2020-08-11] MEDS ORDERED: Ondansetron PF 4 MG/2 ML Vial IVP PRN (14:57)
[2020-08-11] MEDS ORDERED: Ondansetron ODT 4 MG TAB PO PRN (14:57)
[2020-08-11 15:05] LABS: ALT (SGPT) 17 U/L (8-55); AST (SGOT) 23 U/L (5-34); Albumin 3.2 g/dL (3.4-4.8); Alkaline Phosphatase 59 U/L (40-110); Anion Gap 18 mmol/L (10-20); BUN (Urea Nitrogen) 55 mg/dL (8.4-25.7); Bilirubin, Total 0.7 mg/dL (0.2-1.2); Calc. Creatinine Clearance 0 mL/min (70-130); Calcium 7.8 mg/dL (7.8-10.44); Carbon Dioxide 15 mmol/L (23-31); Chloride 110 mmol/L (98-107); Glucose 78 mg/dL (83-110); Potassium 4.5 mmol/L (3.5-5.1); Protein, Total 6.2 g/dL (5.8-8.1); Sodium 138 mmol/L (136-145)
[2020-08-11 15:49] LABS: Lactic Acid 3.4 mmol/L (0.5-2.2)
[2020-08-11 15:59] LABS: Iron 23 ug/dL (65-175); Iron Binding Capacity, Total 273 mcg/dL (261-462); Lipase 70 U/L (8-78)
[2020-08-11 16:01] LABS: Troponin I 0.058 ng/mL (< 0.028)
--- NOTE | 2020-08-11 16:08 | ULT ---
Renal sonogram HISTORY: Acute renal insufficiency. FINDINGS: Right kidney is 8.6 cm length. No hydronephrosis or mass evident. Urinary bladder has anderson l appearance. Left kidney is mostly obscured. No hydronephrosis evident. The kidneys have a normal appearance on re cent CT exam. IMPRESSION : No abnormalities are demonstrated.
--- NOTE | 2020-08-11 16:20 | HP ---
PRIMARY CARE PHYSICIAN: Ashlie Boss MD CHIEF COMPLAINT: Melena and hemoptysis. HISTORY OF PRESENT ILLNESS: The patient is a 74-year-old male with a past medical history significant for atrial fibrillation, AVR/MVR replacement (2000) on Coumadin and Plavix, CHF, PVD, and COPD, who presents to the emergency department as a transfer from [facility] for the above complaint. The patient reports having melenic stools for approximately 10 days. He also reports developing hematemesis, described as dark coffee-grounds emesis for the past 4 days. The patient reports associated diffuse abdominal pain that was described as cramping, exacerbated and relieved by nothing. The patient has no history of liver disease. He does not take chronic NSAIDs or steroids. He has no history of any family coagulopathy. As per above, the patient is on Coumadin, dipyridamole, and Plavix for his history of atrial fibrillation and cardiac valve replacements. The patient denies any chest pain, heart palpitations, or lightheadedness. He denies any shortness of breath or cough. No recent fever or illness. He has no known COVID contacts. In the [facility], the patient was found to have a hemoglobin of 6.4 with hematocrit of 20.1, and confirmed melena on examination. The patient had a coffee-grounds emesis x1. Fecal occult blood was positive. CT of the abdomen and pelvis was negative for any acute process. His INR was found to be 7.0 with a PT of 62.3 and a PTT of 77.6. His potassium was also 5.4 with a creatinine of 2.8. Lactic acid 2.5. WBCs of 4.9. BNP was elevated at 856, the patient is on Entresto. EKG was AV paced rhythm. The patient was given 1 unit of packed red blood cells, vitamin K 2.5 mg IVP, 5 units of regular insulin with D50 and started on Protonix drip. The patient was also given 1 L normal saline. In the [place] ER, the patient presented with vital signs within normal limits. UA negative. 1 unit of packed RBCs still infusing. The patient will be admitted to the floor for further treatment. PAST MEDICAL HISTORY: 1. Hyperlipidemia. 2. Atrial fibrillation - treated with pacemaker. 3. Hypertension. 4. CHF. 5. PVD. 6. CAD. 7. COPD. 8. GERD. PAST SURGICAL HISTORY: 1. AVR/MVR (2000). 2. Left femoral stent. 3. Pacemaker. SOCIAL HISTORY: The patient lives with his family. He is a former smoker, quit in 2000. No history of any illicit drug use or heavy alcohol intake. He is independent. FAMILY HISTORY: It is noncontributory for any family history of coagulopathies. ALLERGIES: SULFA. HOME MEDICATIONS: 1. Atorvastatin 20 mg one p.o. daily. 2. Coreg 6.25 mg p.o. b.i.d. 3. Isosorbide mononitrate extended release 30 mg p.o. daily. 4. Hydralazine 25 mg p.o. b.i.d. 5. Dipyridamole 50 mg p.o. daily. 6. Coumadin is as follows 3.75 mg p.o. Wednesday, Wednesday, Wednesday, then 2.5 mg p.o. on Tuesdays, , Wednesday, Wednesday. 7. Entresto one tab b.i.d. 8. Amiodarone 200 mg p.o. q.a.m. 9. Plavix 75 mg tablet half tablet p.o. daily. 10. p.o. b.i.d. 11. Pepcid 20 mg p.o. daily. REVIEW OF SYSTEMS: All review of systems are negative unless otherwise stated in the HPI. PHYSICAL EXAMINATION: VITAL SIGNS: Temperature 98.4, blood pressure 148/82, pulse 65, respirations 18, 100% on room air, 0/10 pain. CONSTITUTIONAL: The patient mildly hypertensive, appears nontoxic, no acute distress. A and O x4. HEENT: Head; atraumatic, normocephalic. Eyes; PERRLA. Extraocular muscles intact. Sclerae nonicteric. NECK: Full range of motion. No cervical spinous tenderness. No cervical adenopathy. ENT, oropharynx is clear. Uvula midline. Tacky mucous membranes, pallor. No oral lesions. RESPIRATORY/CHEST: Respirations even nonlabored. Clear to auscultation. No rhonchi, wheezes, or rales. CARDIOVASCULAR: S1, S2 appreciated. Audible clicking, no rubs or gallops. ABDOMEN: Soft, nontender, nondistended. Active bowel sounds. No guarding. No rigidity. No rebound. Negative Rovsing. Negative Celaya sign. BACK: Full range of motion. No central spinous tenderness. No CVA tenderness. EXTREMITIES: Upper extremities; full range of motion, normal strength, sensation intact. Palpable radial pulses. Lower extremities; full range of motion, normal strength, sensation intact. Palpable pedal pulses. No swelling. NEUROLOGIC: A and O x4. GCS of 15. No focal motor deficits. PSYCHIATRIC: Denies suicidal, homicidal ideation. DIAGNOSTICS AND LABS: CT of the abdomen pelvis, impression; 1. Diffuse gastric wall thickening is unchanged from the 06/2020 study. 2. Diverticulosis without evidence of diverticulitis. 3. No evidence of bowel obstruction. WBC 6.6, hemoglobin 7.7, hematocrit 22, and platelets 131. PT 36.3, INR 3.6, and APTT 53.6. Sodium 138, potassium 4.5, chloride 110, carbon dioxide 15, anion gap 18, BUN 55, creatinine 2.56, GFR 30, glucose 78, total bilirubin 0.7, AST 23, ALT 17, alkaline phosphatase 59, albumin 3.2. UA is unremarkable. Lactic acid 2.5. BNP 856. IMPRESSION: 1. Acute gastrointestinal bleed. 2. Acute blood loss anemia. 3. Supratherapeutic INR. 4. Acute kidney injury. 5. Hyperkalemia. 6. Congestive heart failure. 7. Coronary artery disease, peripheral vascular disease. 8. Chronic obstructive pulmonary disease. 9. Gastroesophageal reflux disease. 10. Hypertension. 11. Hyperlipidemia. PLAN: This is a 74-year-old male with a past medical history significant for CAD/PVD/AVR/MVR on Coumadin, dipyridamole, and Plavix, who presents as a transfer from [facility] for melena and coffee-grounds emesis. Admit the patient to medical floor, inpatient status. Expected length of stay greater than 2 midnights. Upon assessment, vital signs stable, the patient receiving 1 unit of PRBCs. ER MD to recheck H and H and basic labs. We will trend H and H q.6, the patient is typed and crossed. Consult GI. Continue PPI drip. Check orthostatic vital signs. N.p.o. Check iron studies and hold all blood thinners. In terms of the supratherapeutic INR, received vit K, recheck INR in am. In terms of his acute kidney injury, the patient presented with a creatinine of 2.8. The patient did receive 1 L of normal saline in [facility] ER, likely prerenal in nature due to problem #1 and #2. We will check renal ultrasound. If the symptoms do not improve, consider consulting Nephrology. In terms of hyperkalemia, mild, patient presented with a potassium level 5.4. The patient did receive 5 units regular insulin in the [facility] ER. ER MD rechecking CMP. EKG was AV paced. No acute changes. We will continue to monitor potassium level. In terms of CHF, appears chronic and stable. No EKG changes. BNP 856, likely elevated secondary to Entresto daily. The patient had no signs of fluid volume overload upon assessment. Due to the ADRIANO, we will hold the patient's Entresto for now. In terms of his CAD/PVD, the patient has a history of a left femoral stent and AVR/MVR replacement in 2000. He is on Coumadin, dipyridamole, and Plavix. We will hold all blood thinners. We will recheck INR in a.m. In terms of his COPD, appears chronic, stable. We will restart home medications when reconciled by nursing. In terms of hyperlipidemia, hypertension, and GERD, we will restart home medications. Continue to monitor blood pressure and the patient is currently on a Protonix drip. No pharmacological DVT prophylaxis. SCDs for deep venous thrombosis prophylaxis. PPI drip. Code status is full code. Discussed the case with attending physician, Dr. Mooney. Job ID: [id number] [facility] HOSPITALJean Claude
[2020-08-11 16:22] LABS: Reticulocyte Count 5.3 % (0.5-1.5)
[2020-08-11] MEDS ORDERED: Carvedilol 6.25 MG TAB PO SCH (17:00)
[2020-08-11] MEDS ORDERED: Sodium Chloride 0.9% 500 ML IV SCH (17:00)
[2020-08-11] MEDS: Carvedilol 6.25 MG TAB PO SCH (19:14)
[2020-08-11 19:44] LABS: Hemoglobin 7.5 g/dL (14.0-18.0)
[2020-08-11 20:25] LABS: Ferritin 182.35 ng/mL (22-322)
[2020-08-11] MEDS ORDERED: hydrALAZINE 25 MG TAB PO SCH (21:00)
[2020-08-11] MEDS: hydrALAZINE 25 MG TAB PO SCH (21:24)
[2020-08-11 22:25] LABS: Lactic Acid 1.2 mmol/L (0.5-2.2)
[2020-08-11] MEDS: Pantoprazole 80 MG, Admixture Fee 1 EACH in Sodium Chloride 0.9% 100 ML IVPB SCH (23:28)
[2020-08-12 01:03] LABS: Hemoglobin 6.3 g/dL (14.0-18.0)
[2020-08-12 04:34] LABS: SARS-CoV-2 MS2 Positive; SARS-CoV-2 N Gene Negative; SARS-CoV-2 S Gene Negative; SARS-CoV-2 by NAA Not Detected (NotDetected); SARS-CoV-2 orf1ab Negative
[2020-08-12 07:45] LABS: #Eosinphils 0.1 thou/uL (0.0-0.7); #Lymphocytes 0.9 thou/uL (1.20-3.40); #Monocytes 0.8 thou/uL (0.11-0.59); #Neutrophils 4.7 thou/uL (1.40-6.50); %Basophils 0.5 % (0.0-1.0); %Eosinophils 1.2 % (0.0-10.0); %Lymphocytes 13.7 % (21.0-51.0); %Monocytes 12.4 % (0.0-10.0); %Neutrophils 72.1 % (42.0-75.0); Mean Corpuscular HGB CONC 32.6 g/dL (32.0-36.0); Mean Corpuscular Hemoglobin 30.9 pg (27.0-31.0); Mean Corpuscular Volume 94.8 fL (78.0-98.0); Mean Platelet Volume 8.2 fL (7.4-10.4); Platelet Count 135 thou/uL (130-400); RBC Distribution Width 15.2 % (11.5-14.5); Red Blood Cell (RBC) Count 2.58 mill/uL (4.70-6.10); White Blood Cell (WBC) Count 6.5 thou/uL (4.8-10.8)
[2020-08-12 08:00] LABS: ALT (SGPT) 23 U/L (8-55); AST (SGOT) 30 U/L (5-34); Albumin 3.1 g/dL (3.4-4.8); Alkaline Phosphatase 59 U/L (40-110); Anion Gap 16 mmol/L (10-20); BUN (Urea Nitrogen) 56 mg/dL (8.4-25.7); Bilirubin, Total 1.3 mg/dL (0.2-1.2); Calc. Creatinine Clearance 26 mL/min (70-130); Calcium 7.8 mg/dL (7.8-10.44); Carbon Dioxide 17 mmol/L (23-31); Chloride 113 mmol/L (98-107); Glucose 85 mg/dL (83-110); Potassium 5.1 mmol/L (3.5-5.1); Protein, Total 6.1 g/dL (5.8-8.1); Sodium 141 mmol/L (136-145)
[2020-08-12 08:11] LABS: PTT 33.4 sec (22.9-36.1)
[2020-08-12] MEDS: Carvedilol 6.25 MG TAB PO SCH ×2 (10:36→17:17)
[2020-08-12] MEDS: Folic Acid 1 MG TAB PO SCH (10:36)
[2020-08-12] MEDS: hydrALAZINE 25 MG TAB PO SCH ×2 (10:36→21:25)
[2020-08-12] MEDS: Atorvastatin Calcium 20 MG TAB PO SCH (10:36)
[2020-08-12] MEDS: Amiodarone 200 MG TAB PO SCH (10:36)
[2020-08-12] MEDS: Pantoprazole 80 MG, Admixture Fee 1 EACH in Sodium Chloride 0.9% 100 ML IVPB SCH ×2 (10:36→21:26)
[2020-08-12 13:10] LABS: Hemoglobin 7.5 g/dL (14.0-18.0)
--- NOTE | 2020-08-12 14:40 | CON ---
DATE OF CONSULTATION: 08/12/2020 REASON FOR CONSULTATION: GI bleeding. HISTORY OF PRESENT ILLNESS: Natali Beckett is a very pleasant 74-year-old gentleman with a history significant for congestive heart failure and atrial fibrillation as well as peripheral vascular disease, prior left femoral stent and aortic and mitral valve replacement in 2000. He is chronically on Coumadin and Plavix. He reports having had prior upper and lower endoscopies in the past, having been diagnosed with gastritis as well as diverticular disease. He believes his last endoscopic examination was about a year and a half ago elsewhere. He cannot recall specific findings though, but he believes the colonoscopy at least was fairly unremarkable. He has no chronic gastrointestinal symptoms. He does not take any acid suppression except for Pepcid 20 mg daily, but about 10 days ago, he started noticing that his stools were jet black in appearance and this was concerning to him. Then about 4 days ago, he started having nausea and several episodes of vomiting with what appeared to be coffee-ground emesis, but no arvind hematemesis, however. He started feeling a bit more weak and short of breath and presented to the [facility] where he was found to be significantly anemic with hemoglobin 6.4 with a supratherapeutic INR of 7.0. FOBT was positive. He was given 2 units of RBCs as well as 2.5 mg of IV vitamin K. Hemoglobin has come up to 8.0 and INR down to 2.0. He has remained hemodynamically stable overnight. This morning, he is feeling okay, but still having a bit of abdominal pain in the upper abdomen. There has been no further vomiting or melena since admission. He is on a pantoprazole drip. A CT of the abdomen and pelvis demonstrated diffuse gastric wall thickening and this was also present on a prior scan in 06/2020. REVIEW OF SYSTEMS: Full review of systems including constitutional; head, eyes, ears, nose, and throat; GI; ; cardiovascular; respiratory; musculoskeletal; neurologic; systems is negative except as noted in the HPI. PAST MEDICAL HISTORY: 1. Hyperlipidemia. 2. Atrial fibrillation, on Coumadin. 3. Coronary artery disease. 4. Congestive heart failure, on Plavix. 5. Peripheral vascular disease. 6. Pacemaker placement. 7. Hypertension. 8. COPD. 9. GERD. 10. Aortic and mitral valve replacement in 2000, on Coumadin. 11. Left femoral stent. SOCIAL HISTORY: He is a former smoker, quit in 2000. No alcohol or drug abuse. FAMILY HISTORY: Noncontributory. ALLERGIES: SULFA. HOME MEDICATIONS: 1. Atorvastatin. 2. Coreg. 3. Isosorbide mononitrate. 4. Hydralazine. 5. Dipyridamole 50 mg daily. 6. Coumadin 3.75 mg by mouth Wednesday, Wednesday, and Wednesday and 2.5 mg by mouth Wednesday, , Wednesday, and Wednesday. 7. Entresto b.i.d. 8. Amiodarone. 9. Plavix 75 mg daily. 10. Pepcid 20 mg daily. PHYSICAL EXAMINATION: VITAL SIGNS: Temperature 97.9, pulse 65, blood pressure 130/69, and 98% oxygen saturation on room air. GENERAL: A 74-year-old man, sitting up in bed comfortably, in no distress. SKIN: He is a bit pale. No jaundice. No rash visible or palpable. EYES: No scleral icterus. Extraocular movements intact. ENT: Mucous membranes moist. No oral lesions. LYMPHATICS: No submandibular or supraclavicular lymphadenopathy. THYROID: Nontender to palpation. HEART: Regular rate and rhythm. LUNGS: Clear to auscultation bilaterally. ABDOMEN: Nondistended. Bowel sounds are present. Soft. Some minimal tenderness to palpation in the epigastrium, but no guarding or rebound tenderness. EXTREMITIES: No peripheral edema. VESSELS: Radial pulses 2+ bilaterally. NEUROLOGIC: Cranial nerves 2 through 12 intact bilaterally. No focal deficits. LABORATORY STUDIES: In 06/2020, hemoglobin was 11.7. On admission yesterday, hemoglobin was 6.4, it is up to 8.0 now after 2 units RBC transfusion. WBC 6.5 and platelets 135. INR on admission was 7.0 and after vitamin K administration is down to 2.0. Sodium 141, potassium 5.1, BUN 56, creatinine 2.64, glucose 85, total bilirubin 1.3, alkaline phosphatase 59, AST 30, ALT 23, and albumin 3.1. TSH 2.73. Lactic acid 1.2. Ferritin 182. Urinalysis negative. COVID PCR negative. IMAGING STUDIES: Chest x-ray showed no acute processes. He has cardiomegaly, AICD in place and some pulmonary vascular congestion. Renal ultrasound was normal. CT of the abdomen and pelvis demonstrates diffuse gastric thickening, which was apparent on a prior CT in 06/2020. There was diverticulosis, but no evidence of diverticulitis. ASSESSMENT AND PLAN: 1. Melena, subacute over the past 10 days. 2. Coffee-ground emesis, over the past 4 days. 3. Acute blood loss anemia, seems more subacute, but with significant decline from 11.7 down to 6.4 over the course of just 2 months. 4. Supratherapeutic INR, was 7.0 on admission yesterday, now down to 2.0 after vitamin K administration. 5. Abnormal CT scan of the stomach, demonstrating some gastric thickening. The patient's presentation seems most consistent with subacute upper gastrointestinal blood loss. He is hemodynamically stable and has responded to initial transfusion. He reports a history of gastritis and appears to have some gastric wall thickening on CT scan. Further investigation is certainly warranted. He is appropriately on a pantoprazole drip. Continue to trend hemoglobin and hematocrit and transfuse as needed. We will trend the INR tomorrow as well. Agree with continuing to hold Coumadin. Given his clinical stability, we will have him on a clear liquid diet today, then n.p.o. after midnight for planned EGD tomorrow. If the EGD was completely unrevealing, may need to consider a colonoscopy the following day, though he reports having had a colonoscopy within the past year or 2 elsewhere. Thank you for the consultation. Please call anytime with questions or concerns. Job ID: [id number]
[2020-08-12 14:53] VITALS: BMI 23.7
--- NOTE | 2020-08-12 15:00 | PDOC.HOSPP ---
- Subjective Encounter Date: 08/12/20 Subjective: Patient is feeling well. He says he has had no more evidence of bleeding. He is hungry. - Objective Vital Signs & Weight: Vital Signs (12 hours) Temp Pulse Pulse Pulse Pulse Resp BP 08/12/20 11:31 97.9 F 65 12 08/12/20 10:36 65 08/12/20 09:47 65 65 169/79 H 08/12/20 07:28 97.6 F 65 16 08/12/20 04:09 98.7 F 64 20 BP BP BP Pulse Ox 08/12/20 11:31 130/69 98 08/12/20 10:36 08/12/20 09:47 132/65 08/12/20 07:28 168/79 H 98 08/12/20 04:09 136/74 98 Weight Admit Weight 159 lb 8 oz Weight 160 lb 9 oz I&O: 08/11/20 08/12/20 08/13/20 06:59 06:59 06:59 Intake Total 878 Output Total 450 Balance 428 Result Diagrams: 08/12/20 12:59 08/12/20 07:38 Additional Labs: Accuchecks 08/12/20 08/12/20 08/11/20 05:37 04:30 20:15 POC Glucose 85 83 78 Hospitalist ROS - Medication Medications: Active Medications Generic Name Dose Route Start Last Admin Trade Name Freq PRN Reason Stop Dose Admin Amiodarone HCl 200 mg 08/12/20 09:00 08/12/20 10:36 Amiodarone 200 Mg Tab PO 200 mg DAILY NAVID Administration Atorvastatin Calcium 20 mg 08/12/20 09:00 08/12/20 10:36 Atorvastatin Calcium 20 Mg Tab PO 20 mg DAILY NAVID Administration Carvedilol 6.25 mg 08/11/20 17:00 08/12/20 10:36 Carvedilol 6.25 Mg Tab PO 6.25 mg BID- NAVID Administration Folic Acid 1 mg 08/12/20 09:00 08/12/20 10:36 Folic Acid 1 Mg Tab PO 1 mg DAILY NAVID Administration Hydralazine HCl 25 mg 08/11/20 21:00 08/12/20 10:36 Hydralazine 25 Mg Tab PO 25 mg BID NAVID Administration Pantoprazole Sodium 80 mg/ 100 mls @ 10 mls/hr 08/11/20 12:45 08/12/20 10:36 Miscellaneous Medication 1 IVPB 100 mls each/ Sodium Chloride INF NAVID Administration Isosorbide Mononitrate 30 mg 08/12/20 09:00 08/12/20 10:36 Isosorbide Mononitrate Er 30 Mg Tab PO 30 mg DAILY NAVID Administration - Exam General Appearance: NAD, awake alert Heart: RRR, no gallops, no rubs, normal peripheral pulses, II/IV Respiratory: CTAB, no wheezes, no rales, no ronchi, normal chest expansion, no tachypnea, normal percussion Gastrointestinal: soft, non-tender, non-distended, normal bowel sounds, no palpable masses, no hepatomegaly, no splenomegaly, no bruit Extremities: no cyanosis, no clubbing, no edema Neurological: no focal deficits Musculoskeletal: normal tone Psychiatric: normal affect, normal behavior, A&O x 3 Hosp A/P (1) GI bleed Code(s): K92.2 - GASTROINTESTINAL HEMORRHAGE, UNSPECIFIED Status: Acute (2) Acute blood loss anemia Code(s): D62 - ACUTE POSTHEMORRHAGIC ANEMIA Status: Acute (3) Supratherapeutic INR Code(s): R79.1 - ABNORMAL COAGULATION PROFILE Status: Acute (4) History of atrial fibrillation Code(s): Z86.79 - PERSONAL HISTORY OF OTHER DISEASES OF THE CIRCULATORY SYSTEM Status: Acute (5) HTN (hypertension) Code(s): I10 - ESSENTIAL (PRIMARY) HYPERTENSION Status: Chronic (6) Stage 3 chronic kidney disease Code(s): N18.3 - CHRONIC KIDNEY DISEASE, STAGE 3 (MODERATE) * DO NOT USE * Status: Chronic (7) Cardiomyopathy Code(s): I42.9 - CARDIOMYOPATHY, UNSPECIFIED Status: Acute (8) Pulmonary hypertension Code(s): I27.20 - PULMONARY HYPERTENSION, UNSPECIFIED Status: Acute (9) H/O mitral valve replacement with mechanical valve Code(s): Z95.2 - PRESENCE OF PROSTHETIC HEART VALVE Status: Acute (10) H/O mechanical aortic valve replacement Code(s): Z95.2 - PRESENCE OF PROSTHETIC HEART VALVE Status: Acute - Plan This patient is a 74-year-old male with a history of mechanical mitral and aortic valves. He is followed by Dr. Lechin. He has been on warfarin and recently had Plavix added. Patient presented with melena and coffee-ground emesis over several days. He was significantly anemic with an INR of 7. He received vitamin K in the emergency department. He was transfused 1 unit of blood. GI bleed: Exacerbated by the severe coagulopathy. Transfused. Continue PPI. GI consult and likely endoscopy. Acute blood loss anemia: Status post transfusion. Continue to monitor H&H. Supratherapeutic INR: This is been reversed and significantly reduced. We will continue to hold warfarin as long as he is going through the GI work-up. Mechanical aortic and mitral valves: Patient will need to be on anticoagulation as soon as it can safely be resumed. Pulmonary hypertension: Based on prior echocardiogram with pulmonary artery peak pressures of 66 mmHg. Cardiomyopathy: He has an ejection fraction of around 40 to 45%. Unclear if this is related to his prior valvular disease or if it is ischemic.
[2020-08-13] MEDS ORDERED: Ketamine 50 MG/ML (10ML VIAL) ONE (09:55)
[2020-08-13] MEDS ORDERED: Midazolam HCl 2 mg/2 ml Vial ONE (09:59)
[2020-08-13 10:27] LABS: #Eosinphils 0.2 thou/uL (0.0-0.7); Hemoglobin 8.8 g/dL (14.0-18.0)
[2020-08-13] MEDS ORDERED: Ondansetron HCl/PF 4 MG/2 ML Vial IVP PRN (10:32)
[2020-08-13] MEDS ORDERED: Promethazine HCl 25 MG/ML VIAL IM PRN (10:32)
[2020-08-13] MEDS ORDERED: Promethazine HCl 25 MG/ML VIAL SLOW IVP PRN (10:32)
[2020-08-13 10:33] LABS: INR-International Normal Ratio 2.8; PTT 43.6 sec (22.9-36.1); Prothrombin Time 29.7 sec (12.0-14.7)
[2020-08-13 10:39] LABS: #Lymphocytes 0.8 thou/uL (1.20-3.40); #Monocytes 0.7 thou/uL (0.11-0.59); %Basophils 0.1 % (0.0-1.0); %Eosinophils 4.1 % (0.0-10.0); %Lymphocytes 13.4 % (21.0-51.0); %Monocytes 12.3 % (0.0-10.0); %Neutrophils 70.1 % (42.0-75.0); Mean Corpuscular HGB CONC 32.9 g/dL (32.0-36.0); Mean Corpuscular Hemoglobin 31.1 pg (27.0-31.0); Mean Corpuscular Volume 94.4 fL (78.0-98.0); Platelet Count 149 thou/uL (130-400); Red Blood Cell (RBC) Count 2.84 mill/uL (4.70-6.10); White Blood Cell (WBC) Count 5.7 thou/uL (4.8-10.8)
[2020-08-13] MEDS ORDERED: PROPOFOL 200 MG/20 ML VIAL ONE (11:16)
[2020-08-13] MEDS ORDERED: Lidocaine 1% PF 5 ML VIAL ONE (11:16)
--- NOTE | 2020-08-13 11:21 | OP ---
DATE OF PROCEDURE: 08/13/2020 PROCEDURE PERFORMED: EGD (diagnostic). INDICATIONS FOR PROCEDURE: Hematemesis, melena, anemia. DESCRIPTION OF PROCEDURE: After the risks and benefits of the procedure were explained to the patient including risks of bleeding, infection, perforation, reactions to anesthesia, aspiration, and/or pain, informed consent was obtained. The patient was then taken to the endoscopy suite, where deep sedation was administered via propofol and anesthesia support. Once adequate sedation was achieved, the standard gastroscope was introduced into the mouth with intubation of the esophagus, stomach, and the proximal small intestines with the findings listed below. The patient tolerated the procedure well with no immediate perioperative complications. Upon conclusion of the procedure, all equipment was removed from the patient and he was transferred to PACU in satisfactory condition. FINDINGS: Esophagus: Normal-appearing mucosa was seen in the proximal, mid, and distal esophagus. The diaphragmatic pinch was seen at 45 cm while the gastroesophageal junction was seen at 41 cm, denoting a 4 cm hiatal hernia. However, there were no erosions or ulcerations associated with this particular finding. There was no evidence of erosions, ulcerations, mass lesions, or active/recent bleeding seen there during this portion of the examination. Stomach: Mild mucosal erythema was seen in the gastric fundus and body with a mild mosaic type appearance. However, there was no other abnormalities associated with this particular finding. Otherwise, normal-appearing mucosa was seen in the gastric cardia, distal gastric body, antrum, and incisura. There was no evidence of erosions, ulcerations, mass lesions, or active/recent bleeding. Duodenum: Normal-appearing mucosa was seen in both the duodenal bulb and second portion of the duodenum. There was no evidence of erosions, ulcerations, mass lesions, or active/recent bleeding. IMPRESSION: 1. Mild nonspecific gastropathy without erosive or ulcerative changes. 2. No etiology for the patient's hematemesis/melena was seen during this examination. RECOMMENDATIONS: 1. Would continue to trend the patient's H and H and transfuse as necessary to maintain an H and H of 7/21. 2. Continue to monitor clinically for signs of active GI bleeding. 3. I would continue to correct the patient's coagulopathy with trending the patient's INR daily. 4. If the patient continues to have a decrease in his H and H or signs of continued GI bleeding, I would then consider colonoscopy for further evaluation. Consider colonoscopy or tagged red cell scan for further evaluation. 5. Would change the patient from PPI drip to pantoprazole 40 mg IV b.i.d. 6. Can place the patient on a cardiac diet. We will continue to follow peripherally. Please call with any questions. Job ID: [id number]
[2020-08-13] MEDS: Carvedilol 6.25 MG TAB PO SCH ×2 (11:53→17:44)
[2020-08-13] MEDS: Atorvastatin Calcium 20 MG TAB PO SCH (11:53)
[2020-08-13] MEDS: Folic Acid 1 MG TAB PO SCH (11:53)
[2020-08-13] MEDS: hydrALAZINE 25 MG TAB PO SCH ×2 (11:54→21:25)
[2020-08-13] MEDS: Amiodarone 200 MG TAB PO SCH (11:54)
--- NOTE | 2020-08-13 17:55 | PDOC.HOSPP ---
- Subjective Encounter Date: 08/13/20 Subjective: Feels well status post endoscopy. No evidence of further bleeding. - Objective Vital Signs & Weight: Vital Signs (12 hours) Temp Pulse Resp BP Pulse Ox 08/13/20 16:11 97.9 F 66 17 102/63 99 08/13/20 11:48 97.8 F 65 15 136/72 94 L 08/13/20 07:37 97.6 F 85 18 132/69 95 Weight Admit Weight 159 lb 8 oz Weight 163 lb 9.6 oz I&O: 08/12/20 08/13/20 08/14/20 06:59 06:59 06:59 Intake Total 878 332.8 Output Total 450 600 Balance 428 -267.2 Result Diagrams: 08/13/20 10:16 08/12/20 07:38 Hospitalist ROS - Medication Medications: Active Medications Generic Name Dose Route Start Last Admin Trade Name Freq PRN Reason Stop Dose Admin Amiodarone HCl 200 mg 08/12/20 09:00 08/13/20 11:54 Amiodarone 200 Mg Tab PO 200 mg DAILY NAVID Administration Atorvastatin Calcium 20 mg 08/12/20 09:00 08/13/20 11:53 Atorvastatin Calcium 20 Mg Tab PO 20 mg DAILY NAVID Administration Carvedilol 6.25 mg 08/11/20 17:00 08/13/20 17:44 Carvedilol 6.25 Mg Tab PO Not Given BID-[facility] Folic Acid 1 mg 08/12/20 09:00 08/13/20 11:53 Folic Acid 1 Mg Tab PO 1 mg DAILY NAVID Administration Hydralazine HCl 25 mg 08/11/20 21:00 08/13/20 11:54 Hydralazine 25 Mg Tab PO 25 mg BID NAVID Administration Isosorbide Mononitrate 30 mg 08/12/20 09:00 08/13/20 11:53 Isosorbide Mononitrate Er 30 Mg Tab PO 30 mg DAILY NAVID Administration - Exam General Appearance: NAD, awake alert Heart: RRR, no gallops, no rubs, normal peripheral pulses, II/IV Respiratory: CTAB, no wheezes, no rales, no ronchi, normal chest expansion Gastrointestinal: soft, non-tender, non-distended, normal bowel sounds, no palpable masses, no hepatomegaly, no splenomegaly, no bruit Extremities: no cyanosis, no clubbing, no edema Hosp A/P (1) GI bleed Code(s): K92.2 - GASTROINTESTINAL HEMORRHAGE, UNSPECIFIED Status: Acute (2) Acute blood loss anemia Code(s): D62 - ACUTE POSTHEMORRHAGIC ANEMIA Status: Acute (3) Supratherapeutic INR Code(s): R79.1 - ABNORMAL COAGULATION PROFILE Status: Acute (4) History of atrial fibrillation Code(s): Z86.79 - PERSONAL HISTORY OF OTHER DISEASES OF THE CIRCULATORY SYSTEM Status: Acute (5) HTN (hypertension) Code(s): I10 - ESSENTIAL (PRIMARY) HYPERTENSION Status: Chronic (6) Stage 3 chronic kidney disease Code(s): N18.3 - CHRONIC KIDNEY DISEASE, STAGE 3 (MODERATE) * DO NOT USE * Status: Chronic (7) Cardiomyopathy Code(s): I42.9 - CARDIOMYOPATHY, UNSPECIFIED Status: Acute (8) Pulmonary hypertension Code(s): I27.20 - PULMONARY HYPERTENSION, UNSPECIFIED Status: Acute (9) H/O mitral valve replacement with mechanical valve Code(s): Z95.2 - PRESENCE OF PROSTHETIC HEART VALVE Status: Acute (10) H/O mechanical aortic valve replacement Code(s): Z95.2 - PRESENCE OF PROSTHETIC HEART VALVE Status: Acute - Plan This patient is a 74-year-old male with a history of mechanical mitral and aortic valves. He is followed by Dr. Choudhary. He has been on warfarin and recently had Plavix added. Patient presented with melena and coffee-ground emesis over several days. He was significantly anemic with an INR of 7. He received vitamin K in the emergency department. He was transfused 1 unit of blood. GI bleed: Exacerbated by the severe coagulopathy. Transfused. Continue PPI. GI consult. EGD on 08/13/2020 revealed no significant pathology. We will continue to monitor hemoglobin. If he continues to decline he will likely get lower endoscopy. Patient reported to me that the last time he had an endoscopy he "flatlined". Acute blood loss anemia: Status post transfusion. Continue to monitor H&H. Supratherapeutic INR: This is been reversed and significantly reduced. We will continue to hold warfarin as long as he is going through the GI work-up. Mechanical aortic and mitral valves: Patient will need to be on anticoagulation as soon as it can safely be resumed. Pulmonary hypertension: Based on prior echocardiogram with pulmonary artery peak pressures of 66 mmHg. Cardiomyopathy: He has an ejection fraction of around 40 to 45%. Unclear if this is related to his prior valvular disease or if it is ischemic.
[2020-08-13] MEDS: Pantoprazole 40 MG VIAL IVP SCH (21:27)
[2020-08-14] MEDS ORDERED: Calcium Carbonate 500 MG ChewTAB PO PRN (01:44)
[2020-08-14 05:01] LABS: #Eosinphils 0.3 thou/uL (0.0-0.7); #Lymphocytes 0.7 thou/uL (1.20-3.40); #Monocytes 0.7 thou/uL (0.11-0.59); #Neutrophils 3.9 thou/uL (1.40-6.50); %Eosinophils 4.8 % (0.0-10.0); %Lymphocytes 12.7 % (21.0-51.0); %Monocytes 13.1 % (0.0-10.0); %Neutrophils 69.4 % (42.0-75.0); Hemoglobin 8.7 g/dL (14.0-18.0); Mean Corpuscular HGB CONC 33.4 g/dL (32.0-36.0); Mean Corpuscular Hemoglobin 31.4 pg (27.0-31.0); Mean Corpuscular Volume 94.1 fL (78.0-98.0); Mean Platelet Volume 8.2 fL (7.4-10.4); Platelet Count 154 thou/uL (130-400); RBC Distribution Width 14.8 % (11.5-14.5); Red Blood Cell (RBC) Count 2.77 mill/uL (4.70-6.10); White Blood Cell (WBC) Count 5.6 thou/uL (4.8-10.8)
[2020-08-14] MEDS: Carvedilol 6.25 MG TAB PO SCH ×2 (08:56→17:18)
[2020-08-14] MEDS: Atorvastatin Calcium 20 MG TAB PO SCH (08:56)
[2020-08-14] MEDS: Amiodarone 200 MG TAB PO SCH (08:56)
[2020-08-14] MEDS: hydrALAZINE 25 MG TAB PO SCH (08:56)
[2020-08-14] MEDS: Folic Acid 1 MG TAB PO SCH (08:57)
[2020-08-14] MEDS: Pantoprazole 40 MG VIAL IVP SCH (08:57)
[2020-08-14 11:56] LABS: INR-International Normal Ratio 3.1; PTT 47.1 sec (22.9-36.1); Prothrombin Time 32.9 sec (12.0-14.7)
[2020-08-14 15:46] VITALS: TEMP 97.7
[2020-08-14 16:35] VITALS: BP 108/67
--- NOTE | 2020-08-14 19:07 | PDOC.DS.DS ---
Provider - Provider Date of Admission: 08/11/20 14:34 Date of Discharge: 08/14/20 Admitting Provider: Nicola Mooney MD Consultations: Gastroentrology Primary Care Physician: Ashlie Boss MD Course - Hospital Course Hospital Course: This patient is a 74-year-old male with a history of mechanical mitral and aortic valves. He is followed by Dr. Choudhary. He has been on warfarin and recently had Plavix added. Patient presented with melena and coffee-ground emesis over several days. He was significantly anemic with an INR of 7. He received vitamin K in the emergency department. He was transfused 1 unit of blood. GI bleed: Exacerbated by the severe coagulopathy. Transfused. Continued PPI. GI consult. EGD on 08/13/2020 revealed no significant pathology. Continue to monitor hemoglobin and remained stable Therefore the decision was made not to pursue lower endoscopy. Patient reported to me that the last time he had an endoscopy he "flatlined". It was felt that the patient was likely bleeding due to his significant coagulopathy. With no further evidence of bleeding, no findings on upper endoscopy, normalization of his INR to therapeutic range, he was felt to be stable for discharge. Acute blood loss anemia: Status post transfusion. Subsequent stability. Supratherapeutic INR: This is been reversed and significantly reduced. Warfarin was held. At the time of discharge he was back in a more therapeutic range at 3.1. He will resume his warfarin at his usual dosing. He will have closer follow-up. Patient is encouraged to follow-up with Dr. Choudhary and Dr. Boss to ensure that he is getting the results timely. Patient believes that the addition of the Plavix has caused his INR to go up. He has decided he will not be resuming the Plavix for now. Mechanical aortic and mitral valves: Warfarin was resumed. Pulmonary hypertension: Based on prior echocardiogram with pulmonary artery peak pressures of 66 mmHg. Cardiomyopathy: He has an ejection fraction of around 40 to 45%. Unclear if this is related to his prior valvular disease or if it is ischemic. Resuscitation Status: 08/11/20 14:57 Resuscitation Status Routine Co-Sign Provider: Resuscitation Status: FULL: Full Resuscitation Discussed with: patient - Labs Lab Results: 08/14/20 04:11 08/12/20 07:38 Abnormal Lab Results - Last 48 hrs 08/11/20 14:39: Crossmatch See Detail 08/13/20 10:16: RBC 2.84 L, Hgb 8.8 L, Hct 26.8 L, MCH 31.1 H, RDW 15.0 H, Lymphocytes % 13.4 L, Monocytes % 12.3 H, Lymphocytes # 0.8 L, Monocytes # 0.7 H 08/13/20 10:16: PT 29.7 H, APTT 43.6 H 08/14/20 04:11: RBC 2.77 L, Hgb 8.7 L, Hct 26.1 L, MCH 31.4 H, RDW 14.8 H, Lymphocytes % 12.7 L, Monocytes % 13.1 H, Lymphocytes # 0.7 L, Monocytes # 0.7 H 08/14/20 11:31: PT 32.9 H, APTT 47.1 H - Physical Exam Vitals: Vital Signs (12 hours) Temp Pulse Resp BP BP BP BP 08/14/20 16:35 108/67 08/14/20 15:30 97.7 F 65 18 90/51 L 94/55 L 08/14/20 12:20 101/56 L 08/14/20 11:35 97.1 F L 65 18 88/55 L 08/14/20 07:45 97.1 F L 65 18 123/57 L Pulse Ox 08/14/20 16:35 08/14/20 15:30 96 08/14/20 12:20 08/14/20 11:35 100 08/14/20 07:45 97 Weight Admit Weight 159 lb 8 oz Weight 159 lb 11.2 oz Physical Exam: The patient was seen and examined on the day of discharge. Problem - Problem (1) GI bleed Code(s): K92.2 - GASTROINTESTINAL HEMORRHAGE, UNSPECIFIED Status: Acute (2) Acute blood loss anemia Code(s): D62 - ACUTE POSTHEMORRHAGIC ANEMIA Status: Acute (3) Supratherapeutic INR Code(s): R79.1 - ABNORMAL COAGULATION PROFILE Status: Acute (4) History of atrial fibrillation Code(s): Z86.79 - PERSONAL HISTORY OF OTHER DISEASES OF THE CIRCULATORY SYSTEM Status: Acute (5) HTN (hypertension) Code(s): I10 - ESSENTIAL (PRIMARY) HYPERTENSION Status: Chronic (6) Stage 3 chronic kidney disease Code(s): N18.3 - CHRONIC KIDNEY DISEASE, STAGE 3 (MODERATE) * DO NOT USE * Status: Chronic (7) Cardiomyopathy Code(s): I42.9 - CARDIOMYOPATHY, UNSPECIFIED Status: Acute (8) Pulmonary hypertension Code(s): I27.20 - PULMONARY HYPERTENSION, UNSPECIFIED Status: Acute (9) H/O mitral valve replacement with mechanical valve Code(s): Z95.2 - PRESENCE OF PROSTHETIC HEART VALVE Status: Acute (10) H/O mechanical aortic valve replacement Code(s): Z95.2 - PRESENCE OF PROSTHETIC HEART VALVE Status: Acute Plan - Discharge Medications Home Medications: Medication Instructions Recorded Confirmed Type Atorvastatin Calcium [Lipitor] 20 mg PO HS 12/28/18 08/11/20 History Dipyridamole 25 mg PO DAILY 12/28/18 08/11/20 History Isosorbide Mononitrate [Isosorbide 30 mg PO DAILY 12/28/18 08/11/20 History Mononitrate ER] Warfarin Sodium [Coumadin] 3.75 mg PO ASDIR 12/28/18 08/11/20 History Sacubitril/Valsartan [Entresto 24 1 tab PO BID 12/29/18 08/11/20 History mg-26 mg Tablet] Amiodarone [Cordarone] 200 mg PO BID #30 tab 01/03/19 08/11/20 Rx Carvedilol [Coreg] 6.25 mg PO BID-WM #60 tab 01/03/19 08/11/20 Rx hydrALAZINE [Apresoline] 25 mg PO BID #60 tab 01/03/19 08/11/20 Rx Bumetanide 1 mg PO BID 08/11/20 08/11/20 History Clopidogrel Bisulfate [Plavix] 0.5 tab PO DAILY 08/11/20 08/11/20 History Famotidine 20 mg PO DAILY 08/11/20 08/11/20 History Warfarin Sodium [Coumadin] 2.5 mg PO ASDIR 08/11/20 08/11/20 History Allergies: Sulfa (Sulfonamide Antibiotics) Allergy (Verified 08/11/20 21:30) FROM ED PATIENT SUMMARY SHEET - Discharge Instructions Activity:: Activity as Tolerated Nourishment:: Coumadin Prudent Diet, Heart Healthy Diet, Low Sodium Diet - Follow up Plan Referrals: Ashlie Boss MD [Primary Care Provider] - 7 Days (Please call office to schedule an appointment.) Disposition: HOME Quality - Care Measures CORE MEASURES:: N/A
[2020-08-14] MEDS ORDERED: Bumetanide 1 MG TAB PO SCH (21:00)
--- NOTE | 2020-08-15 07:58 | PQF ---
CLINICAL DOCUMENTATION CLARIFICATION FORM: Dear : Benton Bennett Date / Time: 08/15/20 9547 Please exercise your independent, professional judgment in responding to the clarification form. Clinical indicators are provided on the bottom of this form for your review In your clinical opinion based on clinical findings below, can you please identify the etiology of GI bleed if due to: Please check appropriate box(es): [ x ] Adverse effect of Warfarin from Coagulopathy [ ] Gastropathy [ ] Other diagnosis, please specify: [ ] Unable to determine Physician Signature: Date/Time: For continuity of documentation, please document condition throughout progress notes and discharge summary. Thank You. To be completed by CDI/Coding staff for physician review: Present Clinical Indicators - Signs / Symptoms / Labs Results and Location in Medical Record [x] BP 147/74, Pulse 65, Resp 18, Temp 98.4 Vital signs 08/11 [x] RBC 2.34, Hgb 7.7, Hct 22.0 Laboratory 08/11 [x] The pt reports having melanic stools for 10 days. He also reports developing hematemesis H&P p1 08/11 [facility] [employer] [x] Acute blood loss anemia H&P p3 08/11 [facility] [employer] [x] Acute GI bleed H&P p3 08/11 [facility] [employer] [x] Supratherapuetic INR Consult Dr Dangelo 05/12 [x] Gastropathy Procedure 08/13 Dr Mclain [x] GI bleeding exacerbated by Coagulopathy HPN p3 08/12 Dr Bennett Present Risk Factors Results and Location in Medical Record [x] 74 year-old Male H&P p1 08/11 [facility] [employer] [x] Hx of AVR/MVR replacement on Coumadin and Plavix H&P p1 08/11 [facility] [employer] [x] HTN H&P p1 08/11 [facility] [employer] [x] Afib H&P p1 08/11 [facility] [employer] [x] Gastropathy Procedure 08/13 Dr Mclain Present Treatments Results and Location in Medical Record [x] IV Zofran 4 mg OCT 07 [x] IV Protonix 80 mg OCT 07 [x] IVF NS 1L OCT 07 [x] IV Vitamin K 2.5 mg OCT 07 [x] PRBC Blood bank 08/12 [x] GE consult Consult Dr Case 05/12 [x] EGD Procedure 08/13 Dr Mclain CDS/[employer] Equipment Technician Signature: Shanna Susi Angela Phone #: [phone] Date/Time: 08/15/20 4012 This is a permanent part of the Medical Record [facility]
[2020-08-15] MEDS ORDERED: DIPYRIDAMOLE 50 MG PO SCH (09:00)
[2020-08-15] MEDS ORDERED: Famotidine 20 MG TAB PO SCH (09:00)
[2020-08-15] MEDS ORDERED: Warfarin Sodium 7.5 MG TAB PO SCH (17:00)
[2020-08-16] MEDS ORDERED: Warfarin Sodium 2.5 MG TAB PO SCH (17:00)
== END 2020-08-14 18:20 | disposition home or self-care (01) | DRG 813 ==
LOC: ERS 12:09 → 2NO 14:34
PROVIDERS: ADMIT Internal Medicine; ATTEND Internal Medicine
PROC: 30233N1 Transfusion of Nonautologous Red Blood Cells into Peripheral Vein, Percutaneous Approach (ICD-10-PCS; principal; 2020-08-12)
PROC: 0DJ08ZZ Inspection of Upper Intestinal Tract, Via Natural or Artificial Opening Endoscopic (ICD-10-PCS; 2020-08-14)
DX: D68.32 Hemorrhagic disorder due to extrinsic circulating anticoagulants (principal); D62 Acute posthemorrhagic anemia; I42.9 Cardiomyopathy, unspecified; N17.9 Acute kidney failure, unspecified; I13.0 Hypertensive heart and chronic kidney disease with heart failure and stage 1 through stage 4 chronic kidney disease, or unspecified chronic kidney disease; K92.1 Melena; Z20.822 Contact with and (suspected) exposure to COVID-19; I27.20 Pulmonary hypertension, unspecified; N18.30 Chronic kidney disease, stage 3 unspecified; K31.89 Other diseases of stomach and duodenum; I48.91 Unspecified atrial fibrillation; J44.9 Chronic obstructive pulmonary disease, unspecified; I50.9 Heart failure, unspecified; E78.5 Hyperlipidemia, unspecified; K21.9 Gastro-esophageal reflux disease without esophagitis; E87.5 Hyperkalemia; Z95.828 Presence of other vascular implants and grafts; Z95.2 Presence of prosthetic heart valve; Z95.0 Presence of cardiac pacemaker; Z79.899 Other long term (current) drug therapy; Z79.02 Long term (current) use of antithrombotics/antiplatelets; Z79.01 Long term (current) use of anticoagulants; T45.515A Adverse effect of anticoagulants, initial encounter
CPT/HCPCS: 36415; 36416; 36430; 76770; 80053; 81003; 82607; 82728; 82746; 83540; 83550; 83605; 83690; 84443; 84484; 85014; 85018; 85025; 85046; 85610; 85730; 86850; 86900; 86901; 87635; 93005; 96365; 96366; C9113; J2250; J2704; J3490; P9016; U0003

== ENCOUNTER 2021-12-16 12:00 | Inpatient (IN) | payer MEDICARE ==
[2021-12-16 15:00] VITALS: BMI 21.9
[2021-12-16] MEDS ORDERED: Ondansetron PF 4 MG/2 ML Vial IVP PRN (15:37)
[2021-12-16] MEDS ORDERED: Acetaminophen 325 MG TAB PO PRN (15:37)
[2021-12-16] MEDS ORDERED: HYDROcodone/Acetaminophen 5/325 mg Tablet PO PRN (15:37)
[2021-12-16] MEDS: cefTRIAXone\\ROCEPHIN 1 GM in Sodium Chloride 0.9% 100 ML IVPB SCH (16:25)
[2021-12-16] MEDS: Sodium Chloride 0.9% 1,000 ML IV SCH (16:25)
[2021-12-16] MEDS: Pantoprazole 80 MG in Sodium Chloride 0.9% 100 ML IVP SCH (17:32)
[2021-12-16 17:33] LABS: ALT (SGPT) 14 U/L (8-55); AST (SGOT) 30 U/L (5-34); Albumin 3.3 g/dL (3.4-4.8); Alkaline Phosphatase 92 U/L (40-110); Anion Gap 16 mmol/L (10-20); BUN (Urea Nitrogen) 92 mg/dL (8.4-25.7); Bilirubin, Total 1.4 mg/dL (0.2-1.2); Calc. Creatinine Clearance 15 mL/min (70-130); Calcium 8.6 mg/dL (7.8-10.44); Carbon Dioxide 20 mmol/L (23-31); Chloride 104 mmol/L (98-107); Globulin 3.8 g/dL (2.4-3.5); Glucose 79 mg/dL (83-110); Protein, Total 7.1 g/dL (5.8-8.1); Sodium 135 mmol/L (136-145)
[2021-12-16 17:48] LABS: INR-International Normal Ratio 1.6; Prothrombin Time 18.8 sec (12.0-14.7)
[2021-12-16] MEDS: Benzonatate 100 MG CAP PO SCH (20:22)
[2021-12-16 20:54] LABS: Bacteria/HPF None Seen HPF (None Seen); Bilirubin Negative (Negative); Blood, Urine Negative (Negative); Clarity Clear (Clear); Glucose, Urine (Dipstick) Normal (Negative); Ketone, Urine Negative (Negative); Leukocyte Negative Leu/uL (Negative); Nitrite Negative (Negative); Protein, Urine (Dipstick) Negative (Neg-Trace); RBC/HPF 0-3 HPF (0-3); Squamous Epithelial 0-3 HPF (0-3); Urobilinogen Normal mg/dL (Less than 2); WBC/HPF 0-3 HPF (0-3)
[2021-12-16 20:55] LABS: Urine Culture Reflex No No
[2021-12-16 21:11] LABS: Creatinine, Urine 29.33 mg/dL (63-166); Protein, Urine Random Quant Less than 10 mg/dL (1-14); Sodium, Urine 80 mmol/L (Not Available); Urea Nitrogen, Random Urine 465 mg/dl
[2021-12-17] MEDS: Pantoprazole 80 MG in Sodium Chloride 0.9% 100 ML IVP SCH (02:23)
[2021-12-17] MEDS: Sodium Chloride 0.9% 1,000 ML IV SCH ×2 (04:31→20:03)
[2021-12-17 04:56] LABS: #Eosinphils 0.3 thou/uL (0.0-0.7); #Lymphocytes 0.8 thou/uL (1.20-3.40); #Monocytes 0.7 thou/uL (0.11-0.59); #Neutrophils 3.8 thou/uL (1.40-6.50); %Basophils 0.2 % (0.0-1.0); %Lymphocytes 13.9 % (21.0-51.0); %Monocytes 11.9 % (0.0-10.0); Hemoglobin 7.1 g/dL (14.0-18.0); Mean Corpuscular HGB CONC 31.5 g/dL (32.0-36.0); Mean Corpuscular Hemoglobin 24.1 pg (27.0-31.0); Mean Corpuscular Volume 76.6 fL (78.0-98.0); Mean Platelet Volume 10.9 fL (7.4-10.4); Platelet Count 176 thou/uL (130-400); RBC Distribution Width 19.7 % (11.5-14.5); Red Blood Cell (RBC) Count 2.95 mill/uL (4.70-6.10); White Blood Cell (WBC) Count 5.5 thou/uL (4.8-10.8)
[2021-12-17 05:00] LABS: INR-International Normal Ratio 1.4; Prothrombin Time 17.2 sec (12.0-14.7)
[2021-12-17 05:02] LABS: SARS-CoV-2 NAA Rapid Test Not Detected (NotDetected)
[2021-12-17 05:22] LABS: ALT (SGPT) 13 U/L (8-55); AST (SGOT) 24 U/L (5-34); Alkaline Phosphatase 86 U/L (40-110); Anion Gap 15 mmol/L (10-20); BUN (Urea Nitrogen) 89 mg/dL (8.4-25.7); Bilirubin, Total 1.4 mg/dL (0.2-1.2); Calc. Creatinine Clearance 16 mL/min (70-130); Calcium 8.2 mg/dL (7.8-10.44); Carbon Dioxide 22 mmol/L (23-31); Chloride 104 mmol/L (98-107); Globulin 3.4 g/dL (2.4-3.5); Glucose 76 mg/dL (83-110); Potassium 4.3 mmol/L (3.5-5.1); Protein, Total 6.4 g/dL (5.8-8.1); Sodium 137 mmol/L (136-145)
[2021-12-17] MEDS ORDERED: Pantoprazole 80 MG, Admixture Fee 1 EACH in Sodium Chloride 0.9% 100 ML IVP SCH (06:45)
[2021-12-17 07:49] LABS: Iron 40 ug/dL (65-175); Iron Binding Capacity, Total 341 mcg/dL (261-462)
[2021-12-17] MEDS ORDERED: Fentanyl 100 MCG/2 ML VIAL ONE (10:09)
[2021-12-17] MEDS ORDERED: PROPOFOL 200 MG/20 ML VIAL ONE (10:20)
[2021-12-17] MEDS ORDERED: Lidocaine 1% PF 5 ML VIAL ONE (10:20)
[2021-12-17] MEDS ORDERED: PHENYLEPHRINE-NS 100 MCG/ML 10 ML SYRINGE ONE ×2 (10:20→11:14)
[2021-12-17] MEDS: Benzonatate 100 MG CAP PO SCH ×3 (12:21→20:38)
[2021-12-17] MEDS ORDERED: Warfarin Sodium 2.5 MG TAB PO SCH (17:00)
[2021-12-17] MEDS ORDERED: Warfarin Sodium 2 MG TAB PO SCH (17:00)
[2021-12-17] MEDS: cefTRIAXone\\ROCEPHIN 1 GM in Sodium Chloride 0.9% 100 ML IVPB SCH (17:53)
[2021-12-17] MEDS ORDERED: Iron, Sodium Ferric Gluconate 250 MG in Sodium Chloride 0.9% 250 ML 250 ML IVPB SCH (19:30)
[2021-12-17] MEDS ORDERED: Enoxaparin Sodium 80 MG/0.8 ML SYRINGE SC SCH (21:00)
[2021-12-18 05:17] LABS: Anion Gap 12 mmol/L (10-20); BUN (Urea Nitrogen) 80 mg/dL (8.4-25.7); Calc. Creatinine Clearance 16 mL/min (70-130); Calcium 8.3 mg/dL (7.8-10.44); Carbon Dioxide 23 mmol/L (23-31); Chloride 104 mmol/L (98-107); Glucose 85 mg/dL (83-110); Potassium 4.5 mmol/L (3.5-5.1); Sodium 134 mmol/L (136-145)
[2021-12-18 05:30] LABS: INR-International Normal Ratio 1.7; Prothrombin Time 19.8 sec (12.0-14.7)
[2021-12-18 05:41] LABS: Band 5 % (5-11); Eosinophils 11 % (0-10); Hemoglobin 6.7 g/dL (14.0-18.0); Lymphocytes 12 % (21-51); MDiff Complete? YES; Mean Corpuscular HGB CONC 30.7 g/dL (32.0-36.0); Mean Corpuscular Hemoglobin 23.9 pg (27.0-31.0); Mean Corpuscular Volume 77.8 fL (78.0-98.0); Mean Platelet Volume 10.9 fL (7.4-10.4); Monocytes 9 % (0-10); Neutrophil 63 % (42-75); Platelet Count 178 thou/uL (130-400); RBC Distribution Width 20.1 % (11.5-14.5); Red Blood Cell (RBC) Count 2.81 mill/uL (4.70-6.10); White Blood Cell (WBC) Count 4.9 thou/uL (4.8-10.8)
[2021-12-18] MEDS ORDERED: Iron Sucrose Complex 200 MG in Sodium Chloride 0.9% 100 ML IVPB SCH (08:15)
[2021-12-18] MEDS: Benzonatate 100 MG CAP PO SCH ×3 (08:48→21:41)
[2021-12-18] MEDS: Iron, Sodium Ferric Gluconate 250 MG in Sodium Chloride 0.9% 250 ML 250 ML IVPB SCH (09:34)
[2021-12-18] MEDS ORDERED: Iron, Sodium Ferric Gluconate 250 MG in Sodium Chloride 0.9% 250 ML 250 ML IVPB SCH (10:00)
[2021-12-18] MEDS: cefTRIAXone\\ROCEPHIN 1 GM in Sodium Chloride 0.9% 100 ML IVPB SCH (16:15)
[2021-12-19 04:44] LABS: INR-International Normal Ratio 2.2; Prothrombin Time 25.2 sec (12.0-14.7)
[2021-12-19 04:45] LABS: PTT 84.5 sec (22.9-36.1)
[2021-12-19 04:59] LABS: Anion Gap 14 mmol/L (10-20); BUN (Urea Nitrogen) 65 mg/dL (8.4-25.7); Calc. Creatinine Clearance 17 mL/min (70-130); Calcium 8.6 mg/dL (7.8-10.44); Carbon Dioxide 21 mmol/L (23-31); Chloride 103 mmol/L (98-107); Glucose 89 mg/dL (83-110); Potassium 4.5 mmol/L (3.5-5.1); Sodium 133 mmol/L (136-145)
[2021-12-19 05:19] LABS: Eosinophils 2 % (0-10); Hemoglobin 7.7 g/dL (14.0-18.0); Hypochromia SLIGHT = 6-15 cells (100X) (0-5/hpf); Lymphocytes 21 % (21-51); MDiff Complete? YES; Mean Corpuscular HGB CONC 30.6 g/dL (32.0-36.0); Mean Corpuscular Hemoglobin 24.5 pg (27.0-31.0); Mean Corpuscular Volume 79.8 fL (78.0-98.0); Mean Platelet Volume 11.4 fL (7.4-10.4); Monocytes 19 % (0-10); Neutrophil 57 % (42-75); Nucleated RBC 1 % (0); Platelet Count 183 thou/uL (130-400); Platelet Morphology Comment Appears Adequate; RBC Distribution Width 21.4 % (11.5-14.5); Reactive Lymphocytes 1 % (0-10); Red Blood Cell (RBC) Count 3.16 mill/uL (4.70-6.10); White Blood Cell (WBC) Count 5.1 thou/uL (4.8-10.8)
[2021-12-19] MEDS: Benzonatate 100 MG CAP PO SCH (09:52)
[2021-12-19] MEDS: Iron, Sodium Ferric Gluconate 250 MG in Sodium Chloride 0.9% 250 ML 250 ML IVPB SCH (10:44)
[2021-12-19 11:59] VITALS: BP 108/58; TEMP 98
[2021-12-19] MEDS ORDERED: Bumetanide 1 MG TAB PO SCH (12:00)
[2021-12-19] MEDS ORDERED: Sodium Bicarbonate Tab 325 MG TAB PO SCH (21:00)
[2021-12-20] MEDS ORDERED: Bumetanide 1 MG TAB PO SCH (09:00)
== END 2021-12-19 14:08 | disposition home or self-care (01) | DRG 813 ==
LOC: 2NO 12:00
PROVIDERS: ADMIT Family Medicine; ATTEND Hospitalist
PROC: 0DJ08ZZ Inspection of Upper Intestinal Tract, Via Natural or Artificial Opening Endoscopic (ICD-10-PCS; principal; 2021-12-17)
PROC: 30233N1 Transfusion of Nonautologous Red Blood Cells into Peripheral Vein, Percutaneous Approach (ICD-10-PCS; 2021-12-18)
DX: D68.32 Hemorrhagic disorder due to extrinsic circulating anticoagulants (principal); D62 Acute posthemorrhagic anemia; N18.4 Chronic kidney disease, stage 4 (severe); I42.9 Cardiomyopathy, unspecified; I13.0 Hypertensive heart and chronic kidney disease with heart failure and stage 1 through stage 4 chronic kidney disease, or unspecified chronic kidney disease; E87.2 Acidosis; N17.9 Acute kidney failure, unspecified; J44.9 Chronic obstructive pulmonary disease, unspecified; T45.515A Adverse effect of anticoagulants, initial encounter; I50.9 Heart failure, unspecified; I25.10 Atherosclerotic heart disease of native coronary artery without angina pectoris; I48.91 Unspecified atrial fibrillation; K31.819 Angiodysplasia of stomach and duodenum without bleeding; Z20.822 Contact with and (suspected) exposure to COVID-19; I27.20 Pulmonary hypertension, unspecified; Z88.2 Allergy status to sulfonamides; Z79.899 Other long term (current) drug therapy; Z79.01 Long term (current) use of anticoagulants; Z95.0 Presence of cardiac pacemaker; Z95.1 Presence of aortocoronary bypass graft; Z87.891 Personal history of nicotine dependence; Y92.9 Unspecified place or not applicable
CPT/HCPCS: 36415; 36416; 36430; 80048; 80053; 81001; 82570; 82728; 83540; 83550; 84156; 84300; 84540; 85025; 85610; 85730; 86850; 86900; 86901; C9113; J0696; J1650; J2704; J2916; J3010; J3490; J7050; J7620; P9016; U0002